=== PATIENT | female | born 1995 | race Caucasian/White ===

== ENCOUNTER 2017-01-26 20:05 | Emergency (ER) | payer BC, OTHER ==
--- NOTE | 2017-01-26 21:13 | ED ---
Female Urogenital HPI - General Chief complaint: Urogenital Stated complaint: 4 weeks /Bleeding Time Seen by Provider: 01/26/17 20:19 Source: patient, RN notes reviewed, old records reviewed Mode of arrival: ambulatory Limitations: no limitations - History of Present Illness Initial comments: 21-year-old female presents emergency Department chief complaint of intermittent vaginal bleeding for one day. She reports she has some lower pelvic cramping. She had a positive test one week ago. This is her second . Denies any fever or chills percent a few episodes of vomiting. - Related Data Previous Rx's Medication Instructions Recorded Flq-Qxjh-Ourtz Acid 1 cap PO DAILY #30 cap 01/26/17 [-U Capsule (formulary)] Allergies Allergy/AdvReac Type Severity Reaction Status Date / Time No Known Allergies Allergy Verified 01/26/17 21:30 Review of Systems ROS Statement: Those systems with pertinent positive or pertinent negative responses have been documented in the HPI. ROS Other: All systems not noted in ROS Statement are negative. Constitutional: Denies: chills Eyes: Denies: eye pain ENT: Denies: ear pain Respiratory: Denies: cough, dyspnea Cardiovascular: Denies: chest pain, palpitations Endocrine: Denies: fatigue Gastrointestinal: Reports: abdominal pain (cramping lower pelvic pain. ), vomiting Genitourinary: Denies: urgency Musculoskeletal: Denies: back pain Skin: Denies: rash, lesions Neurological: Denies: headache Past Medical History Past Medical History: Asthma History of Any Multi-Drug Resistant Organisms: None Reported Past Surgical History: No Surgical Hx Reported Past Psychological History: Anxiety Smoking Status: Former smoker Past Alcohol Use History: None Reported Past Drug Use History: None Reported General Exam - General Exam Comments Initial Comments: 21-year-old female. No acute distress. Limitations: no limitations General appearance: alert, in no apparent distress Head exam: Present: atraumatic, normocephalic, normal inspection Eye exam: Present: normal appearance, PERRL, EOMI. Absent: scleral icterus, conjunctival injection, periorbital swelling ENT exam: Present: normal exam, mucous membranes moist Neck exam: Present: normal inspection. Absent: tenderness, meningismus, lymphadenopathy Respiratory exam: Present: normal lung sounds bilaterally. Absent: respiratory distress, wheezes, rales, rhonchi, stridor Cardiovascular Exam: Present: regular rate, normal rhythm, normal heart sounds. Absent: systolic murmur, diastolic murmur, rubs, gallop, clicks GI/Abdominal exam: Present: soft, normal bowel sounds. Absent: distended, tenderness, guarding, rebound, rigid External exam: Present: normal external exam Speculum exam: Present: normal speculum exam. Absent: erythema, vaginal discharge, cervical discharge, vaginal bleeding By manual exam: Present: normal by manual exam. Absent: cervical motion tenderness, adnexal tenderness Extremities exam: Present: normal inspection, full ROM, normal capillary refill. Absent: tenderness, pedal edema, joint swelling, calf tenderness Back exam: Present: normal inspection Neurological exam: Present: alert, oriented X3, CN II-XII intact Psychiatric exam: Present: normal affect, normal mood Skin exam: Present: warm, dry, intact, normal color. Absent: rash Course Vital Signs 01/26/17 01/26/17 20:18 23:59 Temperature 98.9 F 99.1 F Pulse Rate 90 85 Respiratory 16 18 Rate Blood Pressure 135/88 115/68 O2 Sat by Pulse 97 98 Oximetry Medical Decision Making - Medical Decision Making Patient is a 20-year-old female presents emergency Department with CC of conern for early preganncy and vaginal bleeding. PAtietnt reports that she has had lower pelvic cramping for 1 day. Also a few episodes of vomiting. Pt blood type is o postive, hcg level noted to 8800. Patient US shows IUP at 7 mm, no gestational age at this tiime. Discussed patient needs to return for repeat hcg levels. Patient pelvic exam shows no major bleeding or cervical abnormalities. Return paramters discussed. Follow up with OB advised. - Lab Data Result diagrams: 01/26/17 21:49 Lab Results 01/26/17 01/26/17 01/26/17 Range/Units 21:49 21:49 21:49 WBC 7.7 (3.8-10.6) k/uL RBC 4.23 (3.80-5.40) m/uL Hgb 13.4 (11.4-16.0) gm/dL Hct 39.3 (34.0-46.0) % MCV 93.0 (80.0-100.0) fL MCH 31.6 (25.0-35.0) pg MCHC 34.0 (31.0-37.0) g/dL RDW 13.6 (11.5-15.5) % Plt Count 242 (150-450) k/uL Neutrophils % 71 % Lymphocytes % 21 % Monocytes % 6 % Eosinophils % 1 % Basophils % 0 % Neutrophils # 5.5 (1.3-7.7) k/uL Lymphocytes # 1.6 (1.0-4.8) k/uL Monocytes # 0.4 (0-1.0) k/uL Eosinophils # 0.1 (0-0.7) k/uL Basophils # 0.0 (0-0.2) k/uL HCG, Quant 8857.5 mIU/mL Urine Color Urine Appearance (Clear) Urine pH (5.0-8.0) Ur Specific [place] (1.001-1.035) Urine Protein (Negative) Urine Glucose (UA) (Negative) Urine Ketones (Negative) Urine Blood (Negative) Urine Nitrite (Negative) Urine Bilirubin (Negative) Urine Urobilinogen (<2.0) mg/dL Ur Leukocyte Esterase (Negative) Urine RBC (0-5) /hpf Urine WBC (0-5) /hpf Ur Squamous Epith Cells (0-4) /hpf Urine Mucus (None) /hpf Trichomonas Ag (Rapid) (Negative) Blood Type O Positive Blood Type Recheck No 01/26/17 01/26/17 Range/Units 21:49 23:00 WBC (3.8-10.6) k/uL RBC (3.80-5.40) m/uL Hgb (11.4-16.0) gm/dL Hct (34.0-46.0) % MCV (80.0-100.0) fL MCH (25.0-35.0) pg MCHC (31.0-37.0) g/dL RDW (11.5-15.5) % Plt Count (150-450) k/uL Neutrophils % % Lymphocytes % % Monocytes % % Eosinophils % % Basophils % % Neutrophils # (1.3-7.7) k/uL Lymphocytes # (1.0-4.8) k/uL Monocytes # (0-1.0) k/uL Eosinophils # (0-0.7) k/uL Basophils # (0-0.2) k/uL HCG, Quant mIU/mL Urine Color Yellow Urine Appearance Cloudy H (Clear) Urine pH 5.5 (5.0-8.0) Ur Specific [place] 1.024 (1.001-1.035) Urine Protein Trace H (Negative) Urine Glucose (UA) Negative (Negative) Urine Ketones Trace H (Negative) Urine Blood Negative (Negative) Urine Nitrite Negative (Negative) Urine Bilirubin Negative (Negative) Urine Urobilinogen <2.0 (<2.0) mg/dL Ur Leukocyte Esterase Negative (Negative) Urine RBC 2 (0-5) /hpf Urine WBC 3 (0-5) /hpf Ur Squamous Epith Cells 5 H (0-4) /hpf Urine Mucus Many H (None) /hpf Trichomonas Ag (Rapid) Negative (Negative) Blood Type Blood Type Recheck - Radiology Data Radiology results: report reviewed Intrauterine 7mm sac. No sign of ectopic at this time. Disposition Clinical Impression: Threatened miscarriage in early Disposition: HOME SELF-CARE Condition: Good Instructions: Threatened Miscarriage (ED) Additional Instructions: patient advised to repeat her blood work in 2 days. Patient should follow-up with primary care provider as well as [facility]. Take vitamins. Return to emergency department if any alarming signs or symptoms occur. Prescriptions: Snc-Nqlu-Emuqb Acid [-U Capsule (formulary)] 1 cap PO DAILY # 30 cap Referrals: Tenzin Martin MD [Primary Care Provider] - 1-2 days Amada Lopez DO [Doctor of Osteopathic Medicine] - 1-2 days Time of Disposition: 23:29
--- NOTE | 2017-01-26 21:28 | US ---
EXAMINATION TYPE: US OB <=14 wks transvag DATE OF EXAM: 01/26/2017 COMPARISON: NONE CLINICAL HISTORY: Pain. spotting EXAM PERFORMED: Transvaginal (TV) and Transabdominal (TA) EXAM MEASUREMENTS: GESTATIONAL AGE / DATING Physician Established: Not yet established Dates by LMP: ( 6 weeks/0 days) EDC: 09/21/2017 Dates by First Scan: No previous this is first scan Dates by Current Scan for: Unable to date by today's study ( MATERNAL ANATOMY Uterus: 6.3 x 3.0 x 3.8 cm Right Ovary: 4.5 x 2.8 x 4.0 cm Left Ovary: 2.3 x 1.5 x 1.8 cm Post CDS / Adnexa: wnl Presence of free fluid: no Presence of corpus luteal cyst: right ovarian cyst seen measuring 2.2 x 3.0 x 2. GESTATION / SURVEY CRL: not seen MSD: 0.67 Yolk Sac (normal less than 6mm): not seen IUP: No IUP seen at this time Date of LMP: 12/15/2016 Beta HcG (if available): Not available at this time Gestational sac seen at this time. No IUP visualized IMPRESSION: There is evidence of a 7 mm intrauterine gestational sac. Right ovarian cysts. Follow-up exam in 14 d ays is recommended to confirm a living fetus if clinically indicated.
[2017-01-26 21:58] LABS: Basophils % (A) 0 %; CH 31.9; CHCM 34.4; Eosinophils # (A) 0.1 k/uL (0-0.7); Eosinophils % (A) 1 %; HCT 39.3 % (34.0-46.0); HDW 2.37; HGB 13.4 gm/dL (11.4-16.0); Luc # (Auto) 0.07; Luc % (Auto) 1; Lymphocytes # (A) 1.6 k/uL (1.0-4.8); Lymphocytes % (A) 21 %; MCH 31.6 pg (25.0-35.0); Mean Platelet Volume 8.4; Monocytes # (A) 0.4 k/uL (0-1.0); Monocytes % (A) 6 %; Neutrophils # (A) 5.5 k/uL (1.3-7.7); Neutrophils % (A) 71 %; RBC 4.23 m/uL (3.80-5.40); RDW 13.6 % (11.5-15.5); WBC 7.7 k/uL (3.8-10.6); WBC (Perox) 8.08
[2017-01-26 22:05] LABS: Appearance,Urine Cloudy (Clear); Bilirubin,Urine Negative (Negative); Glucose,Urine (UA) Negative (Negative); Ketones,Urine Trace (Negative); Leukocyte Esterase,Urine Negative (Negative); Mucus,Urine Many /hpf; Nitrite,Urine Negative (Negative); PH, Urine 5.5 (5.0-8.0); Particle Count 7543; Protein,Urine Trace (Negative); RBC,Urine 2 /hpf (0-5); Specific Gravity,Urine 1.024 (1.001-1.035); Squamous Epithelial Cell,Urine 5 /hpf (0-4); UA Billing (MACRO vs. MICRO) MICRO; Urobilinogen,Urine <2.0 mg/dL (<2.0); WBC,Urine 3 /hpf (0-5)
[2017-01-27] VITALS: BP 115/68; PULSE 85; RESP 18; TEMP 99.1
[2017-02-02 14:55] LABS: Chlamydia/GC Source Vaginal
== END 2017-01-27 | disposition home or self-care (01) ==
LOC: EC 20:05
DX: O20.0 Threatened abortion (principal); Z87.891 Personal history of nicotine dependence; Z3A.01 Less than 8 weeks gestation of pregnancy
CPT/HCPCS: 36415; 76801; 76817; 81001; 84702; 85025; 86900; 86901; 87070; 87205; 87491; 87591; 87808; 99284

== ENCOUNTER → 2017-01-30 | Outpatient (CLI) | payer OTHER | END | disposition home or self-care (01) | LOC: LABWHC1 14:40 | PROVIDERS: ATTEND Physician Assistant Medical | DX: O20.0 Threatened abortion (principal); Z3A.00 Weeks of gestation of pregnancy not specified | CPT/HCPCS: 36415; 84702 ==

== ENCOUNTER 2017-02-07 15:35 | Emergency (ER) | payer OTHER ==
[2017-02-07] MEDS ORDERED: METOCLOPRAMIDE 5 MG/ML 2 ML VIAL IVP STA (16:08)
[2017-02-07] MEDS ORDERED: diphenhydrAMINE 50 MG/ML 1 ML VIAL IVP STA (16:08)
[2017-02-07] MEDS ORDERED: SODIUM CHLORIDE 0.9% 1,000 ML IV ONE (16:08)
--- NOTE | 2017-02-07 16:22 | ED ---
General Adult HPI - General Chief complaint: Abdominal Pain Stated complaint: vomiting, 6wks preg Time Seen by Provider: 02/07/17 15:59 Source: patient Mode of arrival: ambulatory Limitations: no limitations - History of Present Illness Initial comments: patient is a 21-year-old who presents with a chief complaint of nausea and vomiting. Patient is visiting on for 4 days. Patient states that she is never experienced this before. She says that she is about 6 weeks' by last menstrual period. She cannot identify any inciting incidences. She does not identify any aggravating or alleviating factors. Patient states she was able to keep down fluids yesterday. Patient states that she has been vomiting almost hourly. She does not have any previous medical history. - Related Data Previous Rx's Medication Instructions Recorded Pol-Wczj-Wdxrm Acid 1 cap PO DAILY #30 cap 01/26/17 [-U Capsule (formulary)] Metoclopramide HCl [Reglan] 10 mg PO BID #20 tablet 02/07/17 Nitrofurantoin Monohyd/M-Cryst 100 mg PO Q12HR #10 cap 02/07/17 [Macrobid] Allergies Allergy/AdvReac Type Severity Reaction Status Date / Time No Known Allergies Allergy Verified 02/07/17 16:17 Review of Systems ROS Statement: Those systems with pertinent positive or pertinent negative responses have been documented in the HPI. ROS Other: All systems not noted in ROS Statement are negative. Constitutional: Denies: fever Eyes: Denies: vision change ENT: Denies: ear pain, throat pain Respiratory: Denies: cough Cardiovascular: Denies: chest pain Gastrointestinal: Reports: nausea, vomiting. Denies: abdominal pain Genitourinary: Denies: discharge Musculoskeletal: Denies: back pain Skin: Denies: rash, lesions Neurological: Denies: headache Past Medical History Past Medical History: Asthma History of Any Multi-Drug Resistant Organisms: None Reported Past Surgical History: No Surgical Hx Reported Past Psychological History: Anxiety Smoking Status: Former smoker Past Alcohol Use History: None Reported Past Drug Use History: None Reported General Exam Limitations: no limitations General appearance: alert, in no apparent distress Head exam: Present: atraumatic, normocephalic Eye exam: Present: normal appearance ENT exam: Present: mucous membranes moist Respiratory exam: Present: normal lung sounds bilaterally Cardiovascular Exam: Present: regular rate, normal rhythm GI/Abdominal exam: Present: soft. Absent: distended, tenderness Rectal exam: Present: deferred Neurological exam: Present: alert, oriented X3 Psychiatric exam: Present: normal affect, normal mood Skin exam: Present: warm, dry, intact Course Vital Signs 02/07/17 15:53 Temperature 98.4 F Pulse Rate 80 Respiratory 18 Rate Blood Pressure 137/80 O2 Sat by Pulse 100 Oximetry Medical Decision Making - Medical Decision Making patient is a 21-year-old female, who presents 6 weeks with chief complaint of nausea and vomiting. She denies any fevers or chills, or sick contacts. We'll check basic labs, beta hCG, the patient will receive a liter of fluids. Bedside ultrasound shows an intrauterine gestational sac without identifiable heartbeat. This is likely secondary to early . Anatomy otherwise appeared normal. 5:22 PM Laboratory evaluation this patient is unremarkable except for mild evidence of urinary tract infection. Given that the patient is , she'll be treated with Macrobid for 5 days. She was given a prescription for Reglan. Patient states that her nausea is better, she is able to take by mouth intake. She was given exposes signs and symptoms that should prompt return visit to the emergency department. At this time, she is instructed to follow with primary care and [facility]. Patient is agreeable with the care plan, she is stable for discharge. - Lab Data Result diagrams: 02/07/17 16:30 02/07/17 16:30 Lab Results 02/07/17 02/07/17 02/07/17 Range/Units 16:30 16:30 16:30 WBC 8.7 (3.8-10.6) k/uL RBC 4.33 (3.80-5.40) m/uL Hgb 13.6 (11.4-16.0) gm/dL Hct 40.2 (34.0-46.0) % MCV 92.9 (80.0-100.0) fL MCH 31.4 (25.0-35.0) pg MCHC 33.8 (31.0-37.0) g/dL RDW 13.3 (11.5-15.5) % Plt Count 268 (150-450) k/uL Neutrophils % 74 % Lymphocytes % 17 % Monocytes % 7 % Eosinophils % 1 % Basophils % 0 % Neutrophils # 6.4 (1.3-7.7) k/uL Lymphocytes # 1.5 (1.0-4.8) k/uL Monocytes # 0.6 (0-1.0) k/uL Eosinophils # 0.1 (0-0.7) k/uL Basophils # 0.0 (0-0.2) k/uL Sodium 138 (137-145) mmol/L Potassium 3.5 (3.5-5.1) mmol/L Chloride 104 (98-107) mmol/L Carbon Dioxide 23 (22-30) mmol/L Anion Gap 11 mmol/L BUN 6 L (7-17) mg/dL Creatinine 0.58 (0.52-1.04) mg/dL Est GFR (MDRD) Af Amer >60 (>60 ml/min/1.73 sqM) Est GFR (MDRD) Non-Af >60 (>60 ml/min/1.73 sqM) Glucose 86 (74-99) mg/dL Calcium 9.9 (8.4-10.2) mg/dL Urine Color Yellow Urine Appearance Cloudy H (Clear) Urine pH 6.5 (5.0-8.0) Ur Specific [place] 1.025 (1.001-1.035) Urine Protein 1+ H (Negative) Urine Glucose (UA) Negative (Negative) Urine Ketones 2+ H (Negative) Urine Blood Negative (Negative) Urine Nitrite Negative (Negative) Urine Bilirubin Negative (Negative) Urine Urobilinogen 2.0 (<2.0) mg/dL Ur Leukocyte Esterase Large H (Negative) Urine RBC 2 (0-5) /hpf Urine WBC 8 H (0-5) /hpf Ur Squamous Epith Cells 12 H (0-4) /hpf Urine Bacteria Rare H (None) /hpf Urine Mucus Many H (None) /hpf Disposition Clinical Impression: Hyperemesis gravidarum, UTI (urinary tract infection) during , Ascites Disposition: HOME SELF-CARE Condition: Good Prescriptions: Metoclopramide HCl [Reglan] 10 mg PO BID #20 tablet Referrals: Tenzin Martin MD [Primary Care Provider] - 1-2 days
[2017-02-07 16:46] LABS: Appearance,Urine Cloudy (Clear); Bacteria,Urine Rare /hpf; Basophils % (A) 0 %; Bilirubin,Urine Negative (Negative); CH 32.3; CHCM 34.9; Eosinophils # (A) 0.1 k/uL (0-0.7); Eosinophils % (A) 1 %; Glucose,Urine (UA) Negative (Negative); HCT 40.2 % (34.0-46.0); HDW 2.37; HGB 13.6 gm/dL (11.4-16.0); Ketones,Urine 2+ (Negative); Leukocyte Esterase,Urine Large (Negative); Luc # (Auto) 0.08; Luc % (Auto) 1; Lymphocytes # (A) 1.5 k/uL (1.0-4.8); Lymphocytes % (A) 17 %; MCH 31.4 pg (25.0-35.0); MCHC 33.8 g/dL (31.0-37.0); MCV 92.9 fL (80.0-100.0); Mean Platelet Volume 8.1; Monocytes # (A) 0.6 k/uL (0-1.0); Monocytes % (A) 7 %; Mucus,Urine Many /hpf; Neutrophils # (A) 6.4 k/uL (1.3-7.7); Neutrophils % (A) 74 %; Nitrite,Urine Negative (Negative); PH, Urine 6.5 (5.0-8.0); Particle Count 18029; Protein,Urine 1+ (Negative); RBC 4.33 m/uL (3.80-5.40); RBC,Urine 2 /hpf (0-5); RDW 13.3 % (11.5-15.5); Specific Gravity,Urine 1.025 (1.001-1.035); Squamous Epithelial Cell,Urine 12 /hpf (0-4); UA Billing (MACRO vs. MICRO) MICRO; WBC 8.7 k/uL (3.8-10.6); WBC (Perox) 8.66; WBC,Urine 8 /hpf (0-5)
[2017-02-07 16:55] LABS: Anion Gap 11 mmol/L; Blood Urea Nitrogen 6 mg/dL (7-17); Calcium 9.9 mg/dL (8.4-10.2); Carbon Dioxide 23 mmol/L (22-30); Chloride 104 mmol/L (98-107); Glucose 86 mg/dL (74-99); Non-African American GFR(MDRD) >60 (>60 ml/min/1.73 sqM); Potassium 3.5 mmol/L (3.5-5.1); Sodium 138 mmol/L (137-145)
[2017-02-07 17:57] VITALS: BP 124/79; PULSE 81; RESP 16; TEMP 98.1
== END 2017-02-07 17:58 | disposition home or self-care (01) ==
LOC: EC 15:35
DX: O21.0 Mild hyperemesis gravidarum (principal); O23.41 Unspecified infection of urinary tract in pregnancy, first trimester; O99.89 Other specified diseases and conditions complicating pregnancy, childbirth and the puerperium; R18.8 Other ascites; Z87.891 Personal history of nicotine dependence; Z3A.01 Less than 8 weeks gestation of pregnancy
CPT/HCPCS: 36415; 80048; 85025; 81001; 84702; 99284; 96374; 96375; 96361; J1200; J2765

== ENCOUNTER 2017-04-12 15:18 | Emergency (ER) | payer OTHER ==
[2017-04-12] MEDS ORDERED: SODIUM CHLORIDE 0.9% 1,000 ML IV STA (16:44)
--- NOTE | 2017-04-12 17:02 | ED ---
General Adult HPI - General Chief complaint: Syncope Stated complaint: syncope/12 wks Time Seen by Provider: 04/12/17 16:39 Source: patient, RN notes reviewed Mode of arrival: ambulatory Limitations: no limitations - History of Present Illness Initial comments: 21 yo female presents to the ER with cc of syncope. Recent states she's had a cough cold last 2 days along with nausea and vomiting. She is 12 weeks . She not eat or drink anything yesterday when she went to the grocery store today she got lightheaded she's had a syncopal episode that was witnessed by the sister. This is not anything that she did fall to the ground. She states that she is eating and she is feeling better. She denies any chest pain or chest breath for this. She states she just was feeling very weak and lightheaded. Patient states that she is not currently having any other symptoms with this. Patient denies any history of this in the past. Patient states she has had nausea vomiting throughout the beginning of this . Patient to . She denies any vaginal drainage discharged she denies any abdominal pain. Patient denies any recent shortness of breath, chest pain, back pain, abdominal pain, numbness or tingling, dysuria or hematuria, constipation or diarrhea, headaches or visual changes, or any other current symptoms. - Related Data Home Medications Medication Instructions Recorded Confirmed Ondansetron [Zofran ODT] 4 mg PO Q12HR PRN 04/12/17 04/12/17 Allergies Allergy/AdvReac Type Severity Reaction Status Date / Time No Known Allergies Allergy Verified 04/12/17 16:57 Review of Systems ROS Statement: Those systems with pertinent positive or pertinent negative responses have been documented in the HPI. ROS Other: All systems not noted in ROS Statement are negative. Past Medical History Past Medical History: Asthma History of Any Multi-Drug Resistant Organisms: None Reported Past Surgical History: No Surgical Hx Reported Past Psychological History: Anxiety Smoking Status: Former smoker Past Alcohol Use History: None Reported Past Drug Use History: None Reported General Exam - General Exam Comments Initial Comments: General: The patient is awake and alert, in no distress, and does not appear acutely ill. Eye: Pupils are equal, round and reactive to light, extra-ocular movements are intact; there is normal conjunctiva bilaterally. No signs of icterus. Ears, nose, mouth and throat: There are moist mucous membranes. Neck: The neck is supple, there is no tenderness. Cardiovascular: There is a regular rate and rhythm. No murmur, rub or gallop is appreciated. Respiratory: Lungs are clear to auscultation, respirations are non-labored, breath sounds are equal. No wheezes, stridor, rales, or rhonchi. Gastrointestinal: Soft, non-distended, non-tender abdomen without masses or organomegaly noted. There is no rebound or guarding present. No CVA tenderness. Bowel sounds are unremarkable. Back: There is no tenderness to palpation in the midline. There is no obvious deformity. No rashes noted. Musculoskeletal: Normal ROM, no tenderness, There is no pedal edema. There is no calf tenderness or swelling. Sensation intact. Pulses equal bilaterally 2+. Neurological: CN II-XII intact, There are no obvious motor or sensory deficits. Coordination appears grossly intact. Speech is normal. Skin: Skin is warm and dry and no rashes or lesions are noted. Psychiatric: Cooperative, appropriate mood & affect, normal judgment. Limitations: no limitations Course Vital Signs 04/12/17 15:46 Temperature 99.0 F Pulse Rate 94 Respiratory 20 Rate Blood Pressure 113/71 O2 Sat by Pulse 98 Oximetry EKG Findings - EKG Comments: EKG Findings:: Normal sinus rhythm, incomplete right bundle branch block, ventricular rate 92, NE interval 132 Medical Decision Making - Medical Decision Making 21-year-old female presents emergency department with chief complaint of syncope. At this time patient's lab work is reviewed that does show some suspicion for dehydration. This time we informed the patient the importance of fluids (bleeding and drinking. We did discuss return parameters and follow-up and fci. We did give her a liter of fluids. We did discuss all of her questions. She stated that she understood and she is given this plan. This time she will be discharged. - Lab Data Result diagrams: 04/12/17 16:58 04/12/17 16:58 Lab Results 04/12/17 04/12/17 04/12/17 Range/Units 16:58 16:58 16:58 WBC 4.6 (3.8-10.6) k/uL RBC 4.05 (3.80-5.40) m/uL Hgb 13.1 (11.4-16.0) gm/dL Hct 37.2 (34.0-46.0) % MCV 91.8 (80.0-100.0) fL MCH 32.3 (25.0-35.0) pg MCHC 35.2 (31.0-37.0) g/dL RDW 13.1 (11.5-15.5) % Plt Count 195 (150-450) k/uL Neutrophils % 86 % Lymphocytes % 7 % Monocytes % 5 % Eosinophils % 1 % Basophils % 0 % Neutrophils # 4.0 (1.3-7.7) k/uL Lymphocytes # 0.3 L (1.0-4.8) k/uL Monocytes # 0.2 (0-1.0) k/uL Eosinophils # 0.0 (0-0.7) k/uL Basophils # 0.0 (0-0.2) k/uL Sodium 136 L (137-145) mmol/L Potassium 3.3 L (3.5-5.1) mmol/L Chloride 98 (98-107) mmol/L Carbon Dioxide 24 (22-30) mmol/L Anion Gap 14 mmol/L BUN 10 (7-17) mg/dL Creatinine 0.63 (0.52-1.04) mg/dL Est GFR (MDRD) Af Amer >60 (>60 ml/min/1.73 sqM) Est GFR (MDRD) Non-Af >60 (>60 ml/min/1.73 sqM) Glucose 111 H (74-99) mg/dL Calcium 9.4 (8.4-10.2) mg/dL Total Bilirubin 0.4 (0.2-1.3) mg/dL AST 38 H (14-36) U/L ALT 50 (9-52) U/L Alkaline Phosphatase 57 (38-126) U/L Total Protein 6.9 (6.3-8.2) g/dL Albumin 4.1 (3.5-5.0) g/dL Urine Color Yellow Urine Appearance Cloudy H (Clear) Urine pH 5.5 (5.0-8.0) Ur Specific [place] 1.028 (1.001-1.035) Urine Protein 1+ H (Negative) Urine Glucose (UA) Negative (Negative) Urine Ketones 2+ H (Negative) Urine Blood Negative (Negative) Urine Nitrite Negative (Negative) Urine Bilirubin Negative (Negative) Urine Urobilinogen 2.0 (<2.0) mg/dL Ur Leukocyte Esterase Moderate H (Negative) Urine RBC 3 (0-5) /hpf Urine WBC 17 H (0-5) /hpf Ur Squamous Epith Cells 19 H (0-4) /hpf Urine Bacteria Few H (None) /hpf Cellular Casts 7 (0) /lpf Hyaline Casts 7 H (0-2) /lpf Urine Mucus Many H (None) /hpf Disposition Clinical Impression: Dehydration, Syncope Disposition: HOME SELF-CARE Condition: Stable Instructions: Dehydration (ED) Additional Instructions: Please use medication as discussed. Please follow up with family doctor if symptoms have not improved over the next two days. Please return to the emergency room if your symptoms increase or worsen or for any other concerns. Referrals: Tenzin Martin MD [Primary Care Provider] - 1-2 days Time of Disposition: 17:32
[2017-04-12 17:13] LABS: Basophils % (A) 0 %; Eosinophils % (A) 1 %; HCT 37.2 % (34.0-46.0); HGB 13.1 gm/dL (11.4-16.0); Lymphocytes # (A) 0.3 k/uL (1.0-4.8); Lymphocytes % (A) 7 %; MCH 32.3 pg (25.0-35.0); MCHC 35.2 g/dL (31.0-37.0); MCV 91.8 fL (80.0-100.0); Mean Platelet Volume 8.1; Monocytes # (A) 0.2 k/uL (0-1.0); Monocytes % (A) 5 %; Neutrophils % (A) 86 %; Platelet Count 195 k/uL (150-450); RBC 4.05 m/uL (3.80-5.40); RDW 13.1 % (11.5-15.5); WBC 4.6 k/uL (3.8-10.6)
[2017-04-12 17:21] LABS: ALT 50 U/L (9-52); AST 38 U/L (14-36); Albumin 4.1 g/dL (3.5-5.0); Alkaline Phosphatase 57 U/L (38-126); Anion Gap 14 mmol/L; Appearance,Urine Cloudy (Clear); Bacteria,Urine Few /hpf; Bilirubin,Urine Negative (Negative); Blood Urea Nitrogen 10 mg/dL (7-17); Blood,Urine Negative (Negative); Calcium 9.4 mg/dL (8.4-10.2); Carbon Dioxide 24 mmol/L (22-30); Cellular Casts,Urine 7 /lpf (0); Chloride 98 mmol/L (98-107); Color,Urine Yellow; Glucose 111 mg/dL (74-99); Glucose,Urine (UA) Negative (Negative); Hyaline Casts,Urine 7 /lpf (0-2); Ketones,Urine 2+ (Negative); Leukocyte Esterase,Urine Moderate (Negative); Mucus,Urine Many /hpf; Nitrite,Urine Negative (Negative); PH, Urine 5.5 (5.0-8.0); Potassium 3.3 mmol/L (3.5-5.1); Protein,Urine 1+ (Negative); RBC,Urine 3 /hpf (0-5); Sodium 136 mmol/L (137-145); Specific Gravity,Urine 1.028 (1.001-1.035); Squamous Epithelial Cell,Urine 19 /hpf (0-4); Total Bilirubin 0.4 mg/dL (0.2-1.3); Total Protein 6.9 g/dL (6.3-8.2); WBC,Urine 17 /hpf (0-5)
[2017-04-12 17:57] VITALS: BP 100/60; PULSE 95; RESP 18; TEMP 97
== END 2017-04-12 17:57 | disposition home or self-care (01) ==
LOC: EC 15:18
DX: O99.281 Endocrine, nutritional and metabolic diseases complicating pregnancy, first trimester (principal); E86.0 Dehydration; O99.89 Other specified diseases and conditions complicating pregnancy, childbirth and the puerperium; R55 Syncope and collapse; Z3A.12 12 weeks gestation of pregnancy; Z87.891 Personal history of nicotine dependence
CPT/HCPCS: 36415; 80053; 81001; 85025; 87086; 93005; 96360; 99284

== ENCOUNTER → 2017-04-17 | Outpatient (CLI) | payer OTHER ==
--- NOTE | 2017-04-17 16:25 | US ---
EXAMINATION TYPE: US OB >= 14 wk fetus DATE OF EXAM: 04/17/2017 COMPARISON: None CLINICAL HISTORY: Z36 Confirm dates Confirm dates TECHNIQUE: Transabdominal (TA) GESTATIONAL AGE / DATING Physician Established: Not yet established Dates by LMP: unknown Dates by First Scan: Dates by Current Scan: (16 weeks/6 days) EDC: 09/26/17 SURVEY IUP: Single PLACENTA: Posterior PREVIA: Low Lying ADALI: 12.8 cm Normal CERVICAL LENGTH (transabdominal: norm > 3.0cm): 3.6 cm BIOMETRY PRESENTATION: Breech LIE: Transverse with head maternal RT BPD: 3.5 cm 16 weeks / 5 days HC: 13.1 cm 16 weeks / 5 days AC: 11.1 cm 17 weeks / 0 days FL: 2.2 cm 16 weeks / 5 days ESTIMATED WEIGHT IN GRAMS: 170 grams ESTIMATED WEIGHT IN LBS/OZ: 0 lbs. 6 oz. HC/AC: 1.18 Normal FL/AC: 20.09 Normal HEART RATE: 163 bpm RHYTHM: Normal Single viable IUP 16wks/6days with JAK of 09/26/17. Low lying placenta IMPRESSION: Single intrauterine gestation estimated at 16 weeks 6 days gestation based on the current ultrasound measurements. This would have a calculated EDC of 09/26/2017. 2. Cardiac activity measures 163 bpm. 3. Low-lying placenta
== END | disposition home or self-care (01) ==
LOC: RADUSWWP 15:04
PROVIDERS: ATTEND Obstetrics & Gynecology
DX: O44.42 Low lying placenta NOS or without hemorrhage, second trimester (principal); Z3A.16 16 weeks gestation of pregnancy
CPT/HCPCS: 76805

== ENCOUNTER → 2017-06-27 | Outpatient (CLI) | payer OTHER ==
[2017-06-27 13:35] LABS: HCT 32.9 % (34.0-46.0); HGB 11.3 gm/dL (11.4-16.0); MCHC 34.3 g/dL (31.0-37.0); MCV 93.5 fL (80.0-100.0); Mean Platelet Volume 8.4; Platelet Count 238 k/uL (150-450); RBC 3.52 m/uL (3.80-5.40); RDW 12.7 % (11.5-15.5); WBC 8.6 k/uL (3.8-10.6)
== END | disposition home or self-care (01) ==
LOC: LABWHC1 12:14
PROVIDERS: ATTEND Obstetrics & Gynecology
DX: Z34.82 Encounter for supervision of other normal pregnancy, second trimester (principal)
CPT/HCPCS: 36415; 82950; 85027

== ENCOUNTER 2017-08-26 14:24 | Outpatient (CLI) | payer OTHER ==
[2017-08-26 15:06] VITALS: BP 122/68; PULSE 96; RESP 14; TEMP 98.1
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
== END 2017-08-26 14:55 | disposition home or self-care (01) ==
LOC: FBPOP 14:24
PROVIDERS: ATTEND Obstetrics & Gynecology
DX: Z36.4 Encounter for antenatal screening for fetal growth retardation (principal)
CPT/HCPCS: 59025; G0463; 99213

== ENCOUNTER 2017-09-15 10:40 | Inpatient (IN) | payer OTHER ==
--- NOTE | 2017-09-15 12:22 | US ---
EXAMINATION TYPE: US OB limited DATE OF EXAM: 09/15/2017 COMPARISON: US 04/17/2017 CLINICAL HISTORY: ADALI. EXAM PERFORMED: Transabdominal (TA) GESTATIONAL AGE / DATING Physician Established: (38 weeks/3 days) EDC: 09/26/2017 Dates by Current Scan: No growth performed on today?s study per ordering physician SURVEY ADALI: 3.3 cm Oligohydramnios HEART RATE: 140 bpm RHYTHM: Normal IMPRESSION: Viable intrauterine , oligohydramnios, limited exam
[2017-09-15] MEDS ORDERED: OXYTOCIN 10 UNIT/ML 1 ML VIAL IM PRN (12:24)
[2017-09-15] MEDS ORDERED: CARBOPROST TROMETHAMINE 250 MCG/ML 1 ML AMP IM PRN (12:24)
[2017-09-15] MEDS ORDERED: LIDOCAINE 1% (PF) 10 MG/ML (30 ML SDV) SQ PRN (12:24)
[2017-09-15] MEDS ORDERED: METHYLERGONOVINE 0.2 MG/ML 1 ML AMP IM PRN (12:24)
[2017-09-15] MEDS ORDERED: TERBUTALINE 1 MG/ML VIAL SQ PRN (12:24)
[2017-09-15 12:30] VITALS: BMI 24.7
[2017-09-15] MEDS ORDERED: OXYTOCIN 20 UNITS/1000 ML NS 1,000 ML IV SCH ×2 (12:30→20:15)
[2017-09-15] MEDS ORDERED: AMPICILLIN 2,000 MG in SODIUM CHLORIDE 0.9% 100 ML IVPB STA (12:38)
--- NOTE | 2017-09-15 12:49 | P.HPOB ---
History of Present Illness H&P Date: 09/15/17 Chief Complaint: Leaking of fluid since 2 AM This patient is a 22-year-old 2 para 0 female estimated date of confinement 09/26/2017 estimated gestational age 38-3/7 weeks who presents to labor and delivery this afternoon with complaints of leaking since 2:00 this morning. Patient states that she began leaking at 2 in the morning and thought she did not need to come in until she was having contractions. care is per Dr. Connelly and appears to be complicated by a small for gestational age and late care. Most recent ultrasound showed the estimated weight to be 5 lbs. 8 oz. which is the 16th percentile. Review of Systems Gastrointestinal: Reports heartburn Genitourinary: Reports Menstruation: Reports amenorrhea Past Medical History Past Medical History: Asthma History of Any Multi-Drug Resistant Organisms: None Reported Past Surgical History: No Surgical Hx Reported Past Anesthesia/Blood Transfusion Reactions: No Reported Reaction Past Psychological History: Anxiety Smoking Status: Former smoker Past Alcohol Use History: None Reported Past Drug Use History: None Reported - Past Family History Father Family Medical History: Congestive Heart Failure (CHF), COPD, Diabetes Mellitus Medications and Allergies Allergies Allergy/AdvReac Type Severity Reaction Status Date / Time No Known Allergies Allergy Verified 08/26/17 14:30 Exam Vital Signs Temp Pulse Resp BP 09/15/17 12:30 96.6 F L 102 H 15 124/72 09/15/17 12:26 96.6 F L 102 H 15 124/72 Intake and Output 09/14/17 09/15/17 09/15/17 22:59 06:59 14:59 Other: Weight 61.235 kg - OBG Physical Exam Abdomen: bowel sounds normal, no diffuse tenderness, no bruit present, no guarding noted, no hepatomegaly, no splenomegaly, no mass Vulva: both: normal Vagina: Gross rupture for clear fluid noted. Cervix: Cervix is 3-4 and 80% -2 station vertex. Uterus: enlarged (Fundal height is 36 cm.) Results It appears the patient had a normal Glucola and normal ultrasounds otherwise. Group B strep was negative it is unclear if the patient did do her battery so we'll have to check her blood type. Assessment and Plan Assessment: This is a 22-year-old 2 para 0 female 38-3/7 weeks gestation with premature rupture membranes. Plan at this time is induction of labor, antibiotic prophylaxis, and anticipate vaginal delivery. If I'm unable to find patient's blood type will have to get this blood work drawn as well. (1) Premature rupture of membranes Current Visit: Yes Status: Acute Code(s): O42.90 - ANAY ROM, 7TH0 BETW RUPT & ONST LABR, UNSP WEEKS OF GEST SNOMED Code(s): 77578221 (2) Third trimester Current Visit: Yes Status: Acute Code(s): Z34.93 - ENCNTR FOR SUPRVSN OF NORMAL PREG, UNSP, THIRD TRIMESTER SNOMED Code(s): 77437912
[2017-09-15] MEDS: LACTATED RINGERS 1,000 ML IV SCH ×3 (12:52→15:35)
[2017-09-15 13:14] LABS: Basophils % (A) 0 %; Eosinophils % (A) 0 %; HCT 31.7 % (34.0-46.0); HGB 10.4 gm/dL (11.4-16.0); Lymphocytes # (A) 0.9 k/uL (1.0-4.8); Lymphocytes % (A) 8 %; MCH 29.2 pg (25.0-35.0); MCHC 32.8 g/dL (31.0-37.0); MCV 88.9 fL (80.0-100.0); Mean Platelet Volume 7.5; Monocytes # (A) 0.5 k/uL (0-1.0); Monocytes % (A) 5 %; Neutrophils % (A) 86 %; Platelet Count 291 k/uL (150-450); RBC 3.57 m/uL (3.80-5.40); RDW 13.4 % (11.5-15.5); WBC 11.6 k/uL (3.8-10.6)
[2017-09-15] MEDS ORDERED: fentaNYL (PF) 50 MCG/ML 5 ML AMP ONE (15:15)
[2017-09-15] MEDS ORDERED: BUPIVACAINE (PF) 0.25% 30 ML VIAL ONE (15:15)
[2017-09-15] MEDS ORDERED: SODIUM CHLORIDE 0.9% 100 ML BAG ONE (15:15)
[2017-09-15] MEDS: AMPICILLIN 1,000 MG in SODIUM CHLORIDE 0.9% 50 ML IVPB SCH ×2 (17:08→21:12)
[2017-09-15] MEDS ORDERED: diphenhydrAMINE 50 MG/ML 1 ML VIAL IVP PRN (20:02)
[2017-09-15] MEDS ORDERED: LANOLIN CREAM 5 GM TUBE TOPICAL PRN (20:02)
[2017-09-15] MEDS ORDERED: BISACODYL 10 MG SUPP RECTAL PRN (20:02)
[2017-09-15] MEDS ORDERED: BENZOCAINE/MENTHOL SPRAY 1 GM/SPRAY AEROSOL TOPICAL PRN (20:02)
[2017-09-15] MEDS ORDERED: ZOLPIDEM 5 MG TAB PO PRN (20:02)
[2017-09-15] MEDS ORDERED: ACETAMINOPHEN TAB 325 MG TAB PO PRN (20:02)
[2017-09-15] MEDS ORDERED: diphenhydrAMINE 25 MG CAP PO PRN (20:02)
[2017-09-15] MEDS ORDERED: WITCH HAZEL 1 EACH MED..PAD TOPICAL PRN (20:02)
[2017-09-15] MEDS ORDERED: SIMETHICONE 80 MG CHEWABLE PO PRN (20:02)
[2017-09-15] MEDS ORDERED: HYDROCORTISONE 2.5% RECTAL CREAM 30 GM TUBE RECTAL PRN (20:02)
--- NOTE | 2017-09-15 20:19 | P.PROBDLV ---
Vaginal Delivery Note - . Vaginal Delivery Note: Normal vaginal delivery viable male infant Apgars 8 and 8 at 1947 hrs. Please see dictated H&P for intimate details of this patient's admission. Brief summary this is a 22-year-old 1 para 0 female estimated gestational age 38-1/2 weeks who presented at noon today with complaints of leaking of fluid since 2 in the morning. Patient's cervix is 2 cm dilated on admission and for this reason and she is started on IV antibiotics due to prolonged rupture. Patient's labor is induced with Pitocin at this time. I did draw blood work on her because she did not have her battery drawn previously as well. Patient's labor progressed and she does receive an epidural for pain control. Patient gets to complete pushes the head to the perineum. Posterior perineum is supported we have controlled delivery of infant's head over the intact perineum. Mouth and nares are bulb suctioned at this time. There is no evidence of a nuchal cord. The anterior shoulder then spontaneously delivers and with maternal effort delivery of the posterior shoulder. This is a viable male infant Apgars are 8 and 8 delivery time is 1947 hrs. After delivery of the the umbilical cord is about to finish pulsating then clamped and cut. It is handed the nurses in attendance. Placenta spontaneously delivered intact. Estimated blood loss is 100 mL. There is a superficial left labial laceration that does not require suture. Of note patient did develop a intrapartum temperature just prior to delivery at 100 and then immediately after delivery of 104. Patient are to been on ampicillin however I did add gentamicin after delivery. will be evaluated by special care to rule out infection as well. All counts correct 3. There are no complications. Infant and mother stable delivery room.
[2017-09-15] MEDS ORDERED: GENTAMICIN 120 MG in SODIUM CHLORIDE 0.9% 100 ML IV ONE (20:20)
[2017-09-15] MEDS: IBUPROFEN 600 MG TAB PO PRN (20:41)
[2017-09-15] MEDS ORDERED: GENTAMICIN PER PHARMACY MISCELLANE SCH (20:45)
[2017-09-15] MEDS ORDERED: GENTAMICIN PER PHARMACY MISCELLANE ONE (20:45)
[2017-09-16] MEDS ORDERED: GENTAMICIN IV SCH ×2
[2017-09-16] MEDS ORDERED: SODIUM CHLORIDE 0.9% IV SCH ×2
[2017-09-16] MEDS: AMPICILLIN 1,000 MG in SODIUM CHLORIDE 0.9% 50 ML IVPB SCH ×5 (00:56→21:23)
[2017-09-16] MEDS: GENTAMICIN IN NACL ISO-OSM PMX 80 MG in SALINE 1 100ML.BAG IVPB SCH ×2 (06:10→15:11)
--- NOTE | 2017-09-16 07:06 | P.PNOBGVD ---
Subjective - Subjective Patient reports: Reports appetite normal, Reports voiding normally, Reports pain well controlled, Reports ambulating normally : doing well, in NICU Objective - Latest Vital Signs Latest vital signs: Vital Signs Temp Pulse Resp BP Pulse Ox 09/16/17 05:01 98.4 F 104 H 16 105/57 09/16/17 00:30 98.2 F 116 H 18 109/68 09/16/17 00:00 116 H 09/15/17 22:30 99.8 F H 131 H 18 123/64 09/15/17 21:53 101 F H 141 H 18 123/73 09/15/17 21:23 102.9 F H 130 H 18 122/61 09/15/17 20:53 101.9 F H 141 H 18 123/70 09/15/17 20:38 101.9 F H 131 H 18 123/69 09/15/17 20:08 101.9 F H 148 H 18 128/61 09/15/17 20:00 104 F H 148 H 18 128/61 09/15/17 19:53 104 F H 142 H 18 106/55 09/15/17 13:09 96.6 F L 102 H 16 125/77 99 09/15/17 12:30 96.6 F L 102 H 15 124/72 09/15/17 12:26 96.6 F L 102 H 15 124/72 Intake and Output 09/15/17 09/16/17 09/16/17 22:59 06:59 14:59 Intake Total 1150 1500 Output Total 500 Balance 650 1500 Intake: Intake, IV Titration 1150 300 Amount Ampicillin 1,000 mg In 50 200 Sodium Chloride 0.9% 50 ml @ 100 mls/hr IVPB Q4H [facility] Rx#:[id number] Gentamicin 120 mg In 100 Sodium Chloride 0.9% 100 ml @ 100.27 mls/hr IV ONCE ONE Rx#:[id number] Gentamicin in NaCl Iso- 100 Osm Pmx 80 mg In Saline 1 100ml.bag @ 100 mls/hr IVPB Q8H [facility] Rx#: [id number] Oxytocin 20 Units/1000 ml 1000 Ns 1,000 ml @ Per Protocol IV .Q0M [facility] Rx#: [id number] Oral 1200 Output: Urine 500 Other: # Voids 1 2 - Exam Lungs: bilateral: normal Chest: Normal S1, Normal S2 Extremities: Present: normal Abdomen: Present: normal appearance, soft Uterus: Present: normal, firm - Labs Labs: Abnormal Lab Results - Last 24 Hours (Table) 09/15/17 Range/Units 12:33 WBC 11.6 H (3.8-10.6) k/uL RBC 3.57 L (3.80-5.40) m/uL Hgb 10.4 L (11.4-16.0) gm/dL Hct 31.7 L (34.0-46.0) % Neutrophils # 10.0 H (1.3-7.7) k/uL Lymphocytes # 0.9 L (1.0-4.8) k/uL Assessment and Plan Assessment: day #1. Patient is resting without complaints. I added gentamicin immediately after delivery secondary to the patient's intrapartum fever and patient has defervesced quickly. She denies fevers or chills. Her abdomen is soft and her uterus is nontender. She's been afebrile for approximately 8 hours. Baby is in special care and is doing well, also on IV antibiotics. Plan today is to continue the ampicillin and gentamicin until later this afternoon and then most likely policy change clerks supervisor to an oral antibiotic. Check a CBC this morning. It appears that her chorioamnionitis has resolved with delivery and IV antibiotics. (1) Premature rupture of membranes Current Visit: Yes Status: Acute Code(s): O42.90 - ANAY ROM, 7TH0 BETW RUPT & ONST LABR, UNSP WEEKS OF GEST SNOMED Code(s): 09166374 (2) Third trimester Current Visit: Yes Status: Acute Code(s): Z34.93 - ENCNTR FOR SUPRVSN OF NORMAL PREG, UNSP, THIRD TRIMESTER SNOMED Code(s): 17777170 (3) Chorioamnionitis, delivered, current hospitalization Current Visit: Yes Status: Acute Code(s): O41.1290 - CHORIOAMNIONITIS, UNSP TRIMESTER, NOT APPLICABLE OR UNSP SNOMED Code(s): 83249060
[2017-09-16 07:52] LABS: Basophils % (A) 0 %; Eosinophils % (A) 0 %; HCT 29.1 % (34.0-46.0); HGB 9.5 gm/dL (11.4-16.0); Lymphocytes # (A) 1.2 k/uL (1.0-4.8); Lymphocytes % (A) 9 %; MCH 29.3 pg (25.0-35.0); MCHC 32.5 g/dL (31.0-37.0); MCV 90.3 fL (80.0-100.0); Mean Platelet Volume 7.4; Monocytes # (A) 1.1 k/uL (0-1.0); Monocytes % (A) 8 %; Neutrophils # (A) 11.1 k/uL (1.3-7.7); Neutrophils % (A) 82 %; Platelet Count 232 k/uL (150-450); RBC 3.22 m/uL (3.80-5.40); RDW 13.7 % (11.5-15.5); WBC 13.6 k/uL (3.8-10.6)
[2017-09-16] MEDS: SENNOSIDES-DOCUSATE SODIUM 1 EACH TAB PO SCH ×2 (08:33→10:32)
[2017-09-16] MEDS: AMOXIC-POT CLAV 875-125MG 1 EACH TAB PO SCH (21:35)
[2017-09-16 23:40] VITALS: PULSE 80; RESP 14
[2017-09-17] MEDS: IBUPROFEN 600 MG TAB PO PRN ×2 (00:13→08:25)
[2017-09-17] MEDS ORDERED: GENTAMICIN TROUGH DUE 1 EACH MISC MISCELLANE ONE (06:00)
--- NOTE | 2017-09-17 07:09 | P.PNOBGVD ---
Subjective - Subjective Patient reports: Reports appetite normal, Reports voiding normally, Reports pain well controlled, Reports ambulating normally [place]: doing well Objective - Latest Vital Signs Latest vital signs: Vital Signs Temp Pulse Resp BP BP Pulse Ox 09/16/17 23:38 98.3 F 80 14 122/73 98 09/16/17 16:00 98.4 F 95 16 103/62 09/16/17 12:00 98.0 F 107 H 16 111/68 09/16/17 08:00 98.1 F 94 16 102/60 Intake and Output 09/16/17 09/17/17 09/17/17 22:59 06:59 14:59 Intake Total 200 Balance 200 Intake: Intake, IV Titration 200 Amount Ampicillin 1,000 mg In 100 Sodium Chloride 0.9% 50 ml @ 100 mls/hr IVPB Q4H [facility] Rx#:[id number] Gentamicin in NaCl Iso- 100 Osm Pmx 80 mg In Saline 1 100ml.bag @ 100 mls/hr IVPB Q8H [facility] Rx#: [id number] Other: # Voids 2 - Exam Lungs: bilateral: normal Chest: Normal S1, Normal S2 Extremities: Present: normal Abdomen: Present: normal appearance, soft Uterus: Present: normal, firm - Labs Labs: Abnormal Lab Results - Last 24 Hours (Table) 09/16/17 Range/Units 07:20 WBC 13.6 H (3.8-10.6) k/uL RBC 3.22 L (3.80-5.40) m/uL Hgb 9.5 L (11.4-16.0) gm/dL Hct 29.1 L (34.0-46.0) % Neutrophils # 11.1 H (1.3-7.7) k/uL Monocytes # 1.1 H (0-1.0) k/uL Assessment and Plan Assessment: Post day #2. Patient is resting without new complaints. Vital signs are stable and she is afebrile. I changed her over to oral antibiotics yesterday. Uterus is firm nontender she's having normal lochia. CBC was appropriate. Plan at this time is to continue routine care. I feel she is stable for discharge home on oral antibiotics she'll follow up with Dr. Lainez on Monday to ensure that she still doing good. (1) Premature rupture of membranes Current Visit: Yes Status: Acute Code(s): O42.90 - ANAY ROM, 7TH0 BETW RUPT & ONST LABR, UNSP WEEKS OF GEST SNOMED Code(s): 38906800 (2) Third trimester Current Visit: Yes Status: Acute Code(s): Z34.93 - ENCNTR FOR SUPRVSN OF NORMAL PREG, UNSP, THIRD TRIMESTER SNOMED Code(s): 46323610 (3) Chorioamnionitis, delivered, current hospitalization Current Visit: Yes Status: Acute Code(s): O41.1290 - CHORIOAMNIONITIS, UNSP TRIMESTER, NOT APPLICABLE OR UNSP SNOMED Code(s): 80552018
--- NOTE | 2017-09-17 07:14 | P.DS ---
Providers Date of admission: 09/15/17 11:55 Expected date of discharge: 09/17/17 Attending physician: Ernesto Lainez Primary care physician: Ernesto Lainez - Discharge Diagnosis(es) (1) Premature rupture of membranes Current Visit: Yes Status: Acute (2) Third trimester Current Visit: Yes Status: Acute (3) Chorioamnionitis, delivered, current hospitalization Current Visit: Yes Status: Acute Hospital Course: Please see dictated H&P for intimate details of this patient's admission. Brief summary this is a 22-year-old 2 para 0 female 38-3/7 weeks gestation admitted to labor and delivery with premature rupture membranes. Patient was started on IV antibiotics on admission due to concern for prolonged rupture. Labor was induced with Pitocin and patient did progress quickly went on to have a vaginal delivery viable male infant. Please see dictated delivery note. Patient had a low-grade temperature just prior to delivery however immediately after delivery despite to temperature to 104. At that time I added gentamicin to her antibiotic regimen. CBC was normal on admission. Patient defervesced very quickly after delivery. After 24 hours of antibiotics she continued to be afebrile and was changed to oral antibiotics. That time she is felt to be stable for discharge home follow up with Dr. Lainez this week to recheck. Patient was instructed to call if she had any fever, chills, excessive vaginal bleeding, and/or abdominal pain. Procedures: Induction of labor and normal vaginal delivery. Patient Condition at Discharge: Good Plan - Discharge Summary Discharge Rx Participant: No New Discharge Prescriptions: New Amoxic-Pot Clav 875-125Mg [Augmentin 875-125] 1 each PO Q12HR 7 Days #14 tab Ibuprofen [Motrin] 600 mg PO Q6HR PRN #40 tab PRN Reason: Mild Pain Or Fever >= 100.5 Discharge Medication List Amoxic-Pot Clav 875-125Mg [Augmentin 875-125] 1 each PO Q12HR 7 Days #14 tab 04/06 [Rx] Ibuprofen [Motrin] 600 mg PO Q6HR PRN #40 tab 09/17/17 [Rx] Follow up Appointment(s)/Referral(s): Ernesto Lainez DO [Primary Care Provider] - 1 Week Patient Instructions/Handouts: Vaginal Delivery (DC) Activity/Diet/Wound Care/Special Instructions: No intercourse or anything per vagina for 6 weeks. Please follow up with Dr. Lainez this week as scheduled. Please call if any fever, chills, excessive vaginal bleeding, and/or abdominal pain. Discharge Disposition: HOME SELF-CARE
[2017-09-17 07:30] LABS: Anion Gap 7 mmol/L; Blood Urea Nitrogen 7 mg/dL (7-17); Calcium 8.2 mg/dL (8.4-10.2); Carbon Dioxide 23 mmol/L (22-30); Chloride 109 mmol/L (98-107); Glucose 72 mg/dL (74-99); Sodium 139 mmol/L (137-145)
[2017-09-17] MEDS: AMOXIC-POT CLAV 875-125MG 1 EACH TAB PO SCH (08:26)
[2017-09-17 08:29] VITALS: BP 110/69; TEMP 97.8
[2017-09-17] MEDS ORDERED: GENTAMICIN PEAK DUE 1 EACH MISC MISCELLANE ONE (08:30)
== END 2017-09-17 10:51 | disposition home or self-care (01) | DRG 775 ==
LOC: FBPOP 10:40 → 4FBP 11:55
PROVIDERS: ADMIT Obstetrics & Gynecology; ATTEND Obstetrics & Gynecology
PROC: 10E0XZZ Delivery of Products of Conception, External Approach (ICD-10-PCS; principal; 2017-09-15)
PROC: 00HU33Z Insertion of Infusion Device into Spinal Canal, Percutaneous Approach (ICD-10-PCS; principal; 2017-09-15)
PROC: 3E0R3NZ Introduction of Analgesics, Hypnotics, Sedatives into Spinal Canal, Percutaneous Approach (ICD-10-PCS; principal; 2017-09-15)
DX: O42.02 Full-term premature rupture of membranes, onset of labor within 24 hours of rupture (principal); O41.1230 Chorioamnionitis, third trimester, not applicable or unspecified; O70.0 First degree perineal laceration during delivery; J45.909 Unspecified asthma, uncomplicated; O99.52 Diseases of the respiratory system complicating childbirth; Z3A.38 38 weeks gestation of pregnancy; Z37.0 Single live birth; Z87.891 Personal history of nicotine dependence; Z82.49 Family history of ischemic heart disease and other diseases of the circulatory system; Z83.3 Family history of diabetes mellitus; Z82.5 Family history of asthma and other chronic lower respiratory diseases
CPT/HCPCS: 59025; 76815; 80048; 80170; 85025; 86762; 86780; 86850; 86900; 86901; 87340; 88307; 99213

== ENCOUNTER 2018-05-30 21:51 | Inpatient (IN) | payer OTHER ==
[2018-05-30] MEDS ORDERED: SODIUM CHLORIDE 0.9% 1,000 ML IV SCH (22:15)
[2018-05-30] MEDS ORDERED: ONDANSETRON 4 MG/2 ML VIAL IVP STA (22:48)
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
[2018-05-30 23:14] LABS: Basophils % (A) 0 %; Eosinophils % (A) 0 %; HCT 36.4 % (34.0-46.0); HGB 12.2 gm/dL (11.4-16.0); Lymphocytes # (A) 0.8 k/uL (1.0-4.8); Lymphocytes % (A) 9 %; MCH 29.6 pg (25.0-35.0); MCHC 33.5 g/dL (31.0-37.0); MCV 88.2 fL (80.0-100.0); Mean Platelet Volume 6.8; Monocytes # (A) 0.3 k/uL (0-1.0); Monocytes % (A) 4 %; Neutrophils # (A) 7.3 k/uL (1.3-7.7); Neutrophils % (A) 86 %; Platelet Count 224 k/uL (150-450); RBC 4.13 m/uL (3.80-5.40); RDW 13.1 % (11.5-15.5); WBC 8.4 k/uL (3.8-10.6)
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
[2018-05-30 23:24] LABS: HCG,Qualitative Serum Not Detected
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
[2018-05-30 23:26] LABS: ALT 67 U/L (9-52); AST 79 U/L (14-36); Albumin 3.5 g/dL (3.5-5.0); Alkaline Phosphatase 97 U/L (38-126); Anion Gap 11 mmol/L; Blood Urea Nitrogen 10 mg/dL (7-17); Calcium 8.5 mg/dL (8.4-10.2); Carbon Dioxide 23 mmol/L (22-30); Chloride 104 mmol/L (98-107); Glucose 123 mg/dL (74-99); Potassium 3.5 mmol/L (3.5-5.1); Sodium 138 mmol/L (137-145); Total Bilirubin 0.5 mg/dL (0.2-1.3); Total Protein 6.2 g/dL (6.3-8.2)
[2018-05-30] MEDS ORDERED: LIDOCAINE 1% INJ 10MG/ML (20 ML MDV) SQ STA (23:46)
[2018-05-30] MEDS ORDERED: DEXTROSE 5%-0.45% NACL 1,000 ML IV ONE (23:51)
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
--- NOTE | 2018-05-31 00:08 | XR ---
EXAM: XR Right Foot Complete, 3 or More Views CLINICAL HISTORY: Pain TECHNIQUE: Frontal, lateral and oblique views of the right foot. COMPARISON: No relevant prior studies available. FINDINGS: Bones/joints: No acute fracture or malalignment. Soft tissues: Unremarkable. No radiopaque foreign body. IMPRESSION: No acute osseous abnormality.
[2018-05-31 00:32] LABS: HCT 40.1 % (34.0-46.0); HGB 12.5 gm/dL (11.4-16.0); MCH 28.1 pg (25.0-35.0); MCHC 31.3 g/dL (31.0-37.0); MCV 89.9 fL (80.0-100.0); Mean Platelet Volume 7.6; Platelet Count 203 k/uL (150-450); RBC 4.46 m/uL (3.80-5.40); RDW 13.4 % (11.5-15.5); WBC 8.7 k/uL (3.8-10.6)
[2018-05-31] MEDS ORDERED: NALOXONE 0.4 MG/ML 1 ML VIAL IV PRN (00:35)
[2018-05-31] MEDS ORDERED: ONDANSETRON 4 MG/2 ML VIAL IVP PRN (00:35)
[2018-05-31] MEDS ORDERED: SODIUM CHLORIDE 0.9% 1,000 ML IV SCH (00:45)
[2018-05-31 01:19] LABS: Glucose,Whole Blood 107 mg/dL (75-99)
[2018-05-31 01:48] LABS: Appearance,Urine Clear (Clear); Bilirubin,Urine Negative (Negative); Blood,Urine Trace (Negative); Color,Urine Light Yellow; Glucose,Urine (UA) Negative (Negative); Ketones,Urine 1+ (Negative); Leukocyte Esterase,Urine Trace (Negative); Mucus,Urine Rare /hpf; Nitrite,Urine Negative (Negative); PH, Urine 5.5 (5.0-8.0); Protein,Urine Negative (Negative); RBC,Urine 4 /hpf (0-5); Specific Gravity,Urine 1.023 (1.001-1.035); Squamous Epithelial Cell,Urine 2 /hpf (0-4); Urobilinogen,Urine <2.0 mg/dL (<2.0); WBC,Urine 5 /hpf (0-5)
[2018-05-31 01:51] VITALS: BMI 23.9
[2018-05-31 05:01] LABS: HCT 34.8 % (34.0-46.0); HGB 11.9 gm/dL (11.4-16.0); MCH 30.5 pg (25.0-35.0); MCHC 34.1 g/dL (31.0-37.0); MCV 89.3 fL (80.0-100.0); Platelet Count 210 k/uL (150-450); RDW 13.2 % (11.5-15.5); WBC 5.1 k/uL (3.8-10.6)
[2018-05-31 05:12] LABS: ALT 62 U/L (9-52); AST 60 U/L (14-36); Albumin 3.3 g/dL (3.5-5.0); Alkaline Phosphatase 91 U/L (38-126); Anion Gap 8 mmol/L; Blood Urea Nitrogen 6 mg/dL (7-17); Calcium 8.5 mg/dL (8.4-10.2); Carbon Dioxide 21 mmol/L (22-30); Chloride 107 mmol/L (98-107); Glucose 132 mg/dL (74-99); Magnesium 1.7 mg/dL (1.6-2.3); Phosphorus 2.9 mg/dL (2.5-4.5); Potassium 3.3 mmol/L (3.5-5.1); Sodium 136 mmol/L (137-145); Total Bilirubin 0.5 mg/dL (0.2-1.3)
[2018-05-31] MEDS ORDERED: Phosphorus Replacement Protoco 1 EACH MISC MISCELLANE PRN (07:31)
[2018-05-31] MEDS ORDERED: Magnesium Replacement Protocol 1 EACH MISC MISCELLANE PRN (07:31)
[2018-05-31] MEDS ORDERED: Potassium Replacement Protocol 1 EACH MISC MISCELLANE PRN (07:31)
[2018-05-31] MEDS ORDERED: POTASSIUM PHOSPHATE 10 MMOL in SODIUM CHLORIDE 0.9% 250 ML IV SCH (07:45)
--- NOTE | 2018-05-31 08:13 | XR ---
EXAMINATION TYPE: XR chest 1V DATE OF EXAM: 05/31/2018 COMPARISON: Prior chest x-ray 05/30/2018 HISTORY: Pneumothorax TECHNIQUE: Single frontal view of the chest is obtained. FINDINGS: There is no focal air space opacity, pleural effusion, or pneumothorax seen. The cardiac silhouette size is within normal limits. The osseous structures are intact. IMPRESSION: No acute process.
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
[2018-05-31] MEDS: PANTOPRAZOLE 40 MG/10 ML VIAL IV SCH (09:01)
[2018-05-31] MEDS: MAGNESIUM SULFATE-D5W PMX 1 GM in DEXTROSE/WATER 1 100ML.BAG IVPB SCH ×2 (09:02→10:24)
[2018-05-31] MEDS: POTASSIUM CHLORIDE ER 20 MEQ TAB.ER PO SCH ×2 (09:02→10:24)
[2018-05-31] MEDS: HYDROmorphone 0.5 MG/0.5 ML SYRINGE IVP PRN (09:22)
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
[2018-05-31 12:29] LABS: HCT 34.1 % (34.0-46.0); HGB 11.6 gm/dL (11.4-16.0); MCH 30.2 pg (25.0-35.0); MCHC 33.9 g/dL (31.0-37.0); MCV 89.1 fL (80.0-100.0); Mean Platelet Volume 6.8; Platelet Count 204 k/uL (150-450); RBC 3.83 m/uL (3.80-5.40); RDW 13.2 % (11.5-15.5); WBC 5.6 k/uL (3.8-10.6)
[2018-05-31] MEDS ORDERED: POTASSIUM CHLORIDE ER 20 MEQ TAB.ER PO SCH (15:00)
[2018-05-31 18:15] LABS: HCT 35.3 % (34.0-46.0); HGB 12.1 gm/dL (11.4-16.0); MCH 29.6 pg (25.0-35.0); MCHC 34.2 g/dL (31.0-37.0); MCV 86.7 fL (80.0-100.0); Mean Platelet Volume 7.4; Platelet Count 175 k/uL (150-450); RBC 4.07 m/uL (3.80-5.40); RDW 13.4 % (11.5-15.5); WBC 5.2 k/uL (3.8-10.6)
[2018-06-01] MEDS: HYDROmorphone 0.5 MG/0.5 ML SYRINGE IVP PRN (02:15)
[2018-06-01 04:38] LABS: Basophils % (A) 0 %; Eosinophils % (A) 1 %; HGB 12.2 gm/dL (11.4-16.0); Lymphocytes # (A) 0.8 k/uL (1.0-4.8); Lymphocytes % (A) 11 %; MCH 29.7 pg (25.0-35.0); Mean Platelet Volume 6.9; Monocytes # (A) 0.4 k/uL (0-1.0); Monocytes % (A) 5 %; Neutrophils # (A) 6.6 k/uL (1.3-7.7); Neutrophils % (A) 84 %; Platelet Count 186 k/uL (150-450); RBC 4.11 m/uL (3.80-5.40); RDW 13.2 % (11.5-15.5); WBC 7.9 k/uL (3.8-10.6)
[2018-06-01 04:43] LABS: Glucose,Whole Blood 73 mg/dL (75-99)
[2018-06-01 04:48] LABS: ALT 54 U/L (9-52); AST 38 U/L (14-36); Albumin 3.5 g/dL (3.5-5.0); Alkaline Phosphatase 93 U/L (38-126); Anion Gap 9 mmol/L; Blood Urea Nitrogen 10 mg/dL (7-17); Calcium 8.9 mg/dL (8.4-10.2); Carbon Dioxide 21 mmol/L (22-30); Chloride 109 mmol/L (98-107); Glucose 65 mg/dL (74-99); Potassium 4.2 mmol/L (3.5-5.1); Sodium 139 mmol/L (137-145); Total Bilirubin 0.9 mg/dL (0.2-1.3); Total Protein 6.3 g/dL (6.3-8.2)
--- NOTE | 2018-06-01 08:14 | XR ---
EXAMINATION TYPE: XR shoulder complete LT DATE OF EXAM: 06/01/2018 COMPARISON: NONE HISTORY: Pain TECHNIQUE: Three views are submitted. FINDINGS: The osseous structures are intact. There is no acute fracture or dislocation. AC joint spaces mainta ined. There may be slight elevation of the clavicle relative the acromion. IMPRESSION: 1. There may be slight elevation of the clavicle relative the acromion which can be seen with an AC j oint separation and could be correlated with MRI or dedicated AC joint series.
--- NOTE | 2018-06-01 08:17 | XR ---
EXAMINATION TYPE: XR chest 1V portable DATE OF EXAM: 06/01/2018 COMPARISON: 05/30/2018 HISTORY: Pain TECHNIQUE: Single frontal view of the chest is obtained. FINDINGS: Previously noted tiny apical pneumothorax is not well seen chest x-ray. No consolidation o r pleural effusion. No pneumothorax. IMPRESSION: Previously noted tiny pneumothorax is not well seen on standard x-ray
[2018-06-01] MEDS: PANTOPRAZOLE 40 MG/10 ML VIAL IV SCH (09:02)
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
[2018-06-02 06:07] LABS: Basophils % (A) 0 %; Eosinophils # (A) 0.1 k/uL (0-0.7); Eosinophils % (A) 2 %; HCT 36.9 % (34.0-46.0); HGB 12.2 gm/dL (11.4-16.0); Lymphocytes # (A) 1.3 k/uL (1.0-4.8); Lymphocytes % (A) 24 %; MCH 29.4 pg (25.0-35.0); MCV 89.1 fL (80.0-100.0); Monocytes # (A) 0.4 k/uL (0-1.0); Monocytes % (A) 7 %; Neutrophils # (A) 3.6 k/uL (1.3-7.7); Neutrophils % (A) 65 %; Platelet Count 169 k/uL (150-450); RBC 4.14 m/uL (3.80-5.40); RDW 13.6 % (11.5-15.5); WBC 5.5 k/uL (3.8-10.6)
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
[2018-06-02] MEDS: PANTOPRAZOLE 40 MG/10 ML VIAL IV SCH (09:37)
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
[2018-06-02 15:04] VITALS: RESP 16
[2018-06-03] MEDS: PANTOPRAZOLE 40 MG TABLET PO SCH (08:54)
[2018-06-03] MEDS: HYDROcodone/APAP 5-325MG 1 EACH TAB PO PRN (08:58)
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
[2018-06-03 09:26] LABS: Basophils % (A) 0 %; Eosinophils # (A) 0.1 k/uL (0-0.7); Eosinophils % (A) 2 %; HGB 12.1 gm/dL (11.4-16.0); Lymphocytes # (A) 1.1 k/uL (1.0-4.8); Lymphocytes % (A) 22 %; MCH 28.9 pg (25.0-35.0); MCHC 32.6 g/dL (31.0-37.0); MCV 88.5 fL (80.0-100.0); Mean Platelet Volume 8.3; Monocytes # (A) 0.4 k/uL (0-1.0); Monocytes % (A) 7 %; Neutrophils # (A) 3.4 k/uL (1.3-7.7); Neutrophils % (A) 68 %; Platelet Count 181 k/uL (150-450); RBC 4.18 m/uL (3.80-5.40); RDW 13.6 % (11.5-15.5); WBC 5.1 k/uL (3.8-10.6)
--- NOTE | 2018-06-03 11:47 | XR ---
Right ankle HISTORY: Pain 3 views of the right ankle Bone mineralization, joint spaces and alignment are maintained. No significant soft tissue swelling. No fracture or dislocation. IMPRESSION: Unremarkable right ankle. Consider MRI as indicated.
--- NOTE | 2018-06-03 13:11 | P.PN ---
Progress Note - Text Progress Note Date: 06/03/18 The patient did well. She has minimal complaints of abdominal pain. Her hemoglobin has been stable in the 12 range. On exam her vital signs are stable. Her abdomen soft. Patiently most likely discharge home tomorrow after being evaluated by Dr. Rdz.
[2018-06-04] MEDS: HYDROcodone/APAP 5-325MG 1 EACH TAB PO PRN (05:07)
[2018-06-04 08:01] VITALS: BP 113/76; PULSE 87; TEMP 98
[2018-06-04] MEDS: PANTOPRAZOLE 40 MG TABLET PO SCH (09:02)
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
== END 2018-06-04 11:29 | disposition home or self-care (01) | DRG 963 ==
LOC: EC 21:51 → 2SICU 05-31 00:35 → 4SSUR 06-02 12:14
PROVIDERS: ADMIT Surgery; ATTEND Surgery
DX: S36.031A Moderate laceration of spleen, initial encounter (principal); K66.1 Hemoperitoneum; S27.0XXA Traumatic pneumothorax, initial encounter; S36.112A Contusion of liver, initial encounter; F41.9 Anxiety disorder, unspecified; J45.909 Unspecified asthma, uncomplicated; M41.9 Scoliosis, unspecified; S43.102A Unspecified dislocation of left acromioclavicular joint, initial encounter; S93.601A Unspecified sprain of right foot, initial encounter; V89.2XXA Person injured in unspecified motor-vehicle accident, traffic, initial encounter; Y92.410 Unspecified street and highway as the place of occurrence of the external cause; Z72.0 Tobacco use; Z82.49 Family history of ischemic heart disease and other diseases of the circulatory system; Z82.5 Family history of asthma and other chronic lower respiratory diseases; Z83.3 Family history of diabetes mellitus
CPT/HCPCS: 36415; 70450; 71045; 72125; 74177; 80053; 81001; 83735; 84100; 84132; 84703; 85025; 85027; 86850; 86900; 86901; 96361; 96372; 96374; 99285

== ENCOUNTER → 2018-07-19 | Outpatient (CLI) | payer OTHER ==
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
== END ==
LOC: RADCTMAIN 08:59
PROVIDERS: ATTEND Surgery
DX: S36.039D Unspecified laceration of spleen, subsequent encounter (principal)
CPT/HCPCS: 74160; Q9967

== ENCOUNTER → 2021-01-13 | Outpatient (CLI) | payer OTHER ==
--- NOTE | 2021-01-14 07:33 | US ---
EXAMINATION TYPE: US pelvic complete DATE OF EXAM: 01/13/2021 COMPARISON: NONE CLINICAL HISTORY: R10.2 pelvic pain. TECHNIQUE: . Transabdominal sonographic images of the pelvis were acquired. Transvaginal sonographi c images were medically necessary to better assess the following anatomy: Date of LMP: 01-02-21 EXAM MEASUREMENTS: Uterus: 6.3 x 2.1 x 3.6 cm Endometrial Stripe: 0.2 cm Right Ovary: 1.9 x 2.0 x 1.7 cm Left Ovary: 2.3 x 1.8 x 1.5 cm 1. Uterus: Anteverted wnl 2. Endometrium: wnl 3. Right Ovary: wnl 4. Left Ovary: wnl 5. Bilateral Adnexa: wnl 6. Posterior cul-de-sac: wnl IMPRESSION: No distinct abnormality appreciated.
== END | disposition home or self-care (01) ==
LOC: RADUSWWP 16:17
PROVIDERS: ATTEND Obstetrics & Gynecology
DX: R10.2 Pelvic and perineal pain (principal)
CPT/HCPCS: 76856

== ENCOUNTER 2021-12-22 15:10 | Emergency (ER) | payer OTHER ==
[2021-12-22 16:32] LABS: Appearance,Urine Cloudy (Clear); Bacteria,Urine Few /hpf; Bilirubin,Urine Negative (Negative); Blood,Urine Trace (Negative); Color,Urine Yellow; Glucose,Urine (UA) Negative (Negative); Ketones,Urine 1+ (Negative); Leukocyte Esterase,Urine Large (Negative); Mucus,Urine Many /hpf; Nitrite,Urine Negative (Negative); PH, Urine 5.5 (5.0-8.0); Protein,Urine Trace (Negative); RBC,Urine 56 /hpf (0-5); Specific Gravity,Urine 1.021 (1.001-1.035); Squamous Epithelial Cell,Urine 24 /hpf (0-4); Urobilinogen,Urine <2.0 mg/dL (<2.0); WBC,Urine >182 /hpf (0-5)
--- NOTE | 2021-12-22 17:17 | ED ---
Female Urogenital HPI - General Chief complaint: Vaginal Bleeding Stated complaint: preg spotting Time Seen by Provider: 12/22/21 16:25 Source: patient, RN notes reviewed Mode of arrival: ambulatory Limitations: no limitations - History of Present Illness Initial comments: This is a 26-year-old female who presents to the emergency department for pelvic pain and vaginal bleeding in . 3 days ago, she had 3 positive tests. States that she took a test due to breast tenderness, which is how she knew she was in the past. She has since had light vaginal spotting with a foul odor. She has associated lower abdominal cramping, but the pain is not severe enough to where she has had to take Tylenol. Her periods are very erratic and she sometimes goes 3 months without a period. She has not had what she would consider a typical menstrual cycle since September of this year. Denies any nausea or vomiting. Her last was 4 years ago. Denies any fevers, chills, sore throat, cough, dyspnea, chest pain, palpitations, nausea, vomiting, diarrhea, back pain, or headaches. MD Complaint: vaginal bleeding, pelvic pain Onset/Timin -: days(s) Patient : Yes - Related Data Home Medications Medication Instructions Recorded Confirmed Lillow-28 1 tab PO DAILY 05/30/18 05/30/18 Previous Rx's Medication Instructions Recorded Docusate [Colace] 100 mg PO BID #30 capsule 06/04/18 HYDROcodone/APAP 5-325MG [[place] 1 tab PO Q4HR PRN 3 Days #18 tab 06/04/18 5-325] Cephalexin [Keflex] 500 mg PO Q8HR 5 Days #15 cap 12/22/21 Allergies Allergy/AdvReac Type Severity Reaction Status Date / Time No Known Allergies Allergy Verified 12/22/21 16:12 Review of Systems ROS Statement: Those systems with pertinent positive or pertinent negative responses have been documented in the HPI. ROS Other: All systems not noted in ROS Statement are negative. Past Medical History Past Medical History: Asthma Additional Past Medical History / Comment(s): scoliosis History of Any Multi-Drug Resistant Organisms: None Reported Past Surgical History: No Surgical Hx Reported Past Anesthesia/Blood Transfusion Reactions: No Reported Reaction Past Psychological History: Anxiety Smoking Status: Never smoker Past Alcohol Use History: Occasional Past Drug Use History: Marijuana - Past Family History Father Family Medical History: Congestive Heart Failure (CHF), COPD, Diabetes Mellitus General Exam Limitations: no limitations General appearance: alert, in no apparent distress Head exam: Present: atraumatic, normocephalic, normal inspection Respiratory exam: Present: normal lung sounds bilaterally. Absent: respiratory distress, wheezes, rales, rhonchi, stridor Cardiovascular Exam: Present: regular rate, normal rhythm, normal heart sounds. Absent: systolic murmur, diastolic murmur, rubs, gallop, clicks GI/Abdominal exam: Present: normal bowel sounds Neurological exam: Present: alert, oriented X3, CN II-XII intact Psychiatric exam: Present: normal affect, normal mood Skin exam: Present: warm, dry, intact, normal color. Absent: rash Course Vital Signs 12/22/21 16:09 Temperature 98.2 F Pulse Rate 76 Respiratory 16 Rate Blood Pressure 133/86 O2 Sat by Pulse 100 Oximetry Medical Decision Making - Medical Decision Making This is a 26-year-old female who presents to the emergency department for pelvic pain and vaginal bleeding in . Lab work was nonactionable. Urinalysis consistent with contamination, however given that she is and there is a small amount of bacteria present, she will be treated for bacteriuria. Prescription for Keflex provided to be taken for 5 days. Obstetrics ultrasound obtained, revealing a small anechoic intrauterine cystic structure most consistent with an early gestational sac, however ectopic and abnormal intrauterine cannot be ruled out. Findings discussed with the patient, who expresses understanding. She is instructed to begin taking a vitamin and to only take Tylenol for pain, avoiding any anti- inflammatories such as ibuprofen. Also suggested over the counter vitamin B6 wi th unisom for any nausea and vomiting. She is also advised to become established with an WOOD CABINETMAKER for further management. Return precautions reviewed in depth, the patient is instructed to return to the emergency department with any new, worsening, or concerning symptoms. Patient verbalized understanding. This case was discussed in detail with the attending ED physician. Presentation, findings, and treatment plan discussed in detail as well. - Lab Data Result diagrams: 12/22/21 17:13 12/22/21 17:13 Lab Results 12/22/21 12/22/21 12/22/21 Range/Units 16:12 16:12 17:13 WBC 8.1 (3.8-10.6) k/uL RBC 4.60 (3.80-5.40) m/uL Hgb 14.3 (11.4-16.0) gm/dL Hct 41.3 (34.0-46.0) % MCV 89.9 (80.0-100.0) fL MCH 31.1 (25.0-35.0) pg MCHC 34.7 (31.0-37.0) g/dL RDW 12.1 (11.5-15.5) % Plt Count 259 (150-450) k/uL MPV 8.2 Neutrophils % 71 % Lymphocytes % 22 % Monocytes % 5 % Eosinophils % 1 % Basophils % 0 % Neutrophils # 5.8 (1.3-7.7) k/uL Lymphocytes # 1.8 (1.0-4.8) k/uL Monocytes # 0.4 (0-1.0) k/uL Eosinophils # 0.1 (0-0.7) k/uL Basophils # 0.0 (0-0.2) k/uL Sodium (137-145) mmol/L Potassium (3.5-5.1) mmol/L Chloride (98-107) mmol/L Carbon Dioxide (22-30) mmol/L Anion Gap mmol/L BUN (7-17) mg/dL Creatinine (0.52-1.04) mg/dL Est GFR (CKD-EPI)AfAm (>60 ml/min/1.73 sqM) Est GFR (CKD-EPI)NonAf (>60 ml/min/1.73 sqM) Glucose (74-99) mg/dL Calcium (8.4-10.2) mg/dL Total Bilirubin (0.2-1.3) mg/dL AST (14-36) U/L ALT (4-34) U/L Alkaline Phosphatase (38-126) U/L Total Protein (6.3-8.2) g/dL Albumin (3.5-5.0) g/dL HCG, Quant mIU/mL Urine Color Yellow Urine Appearance Cloudy H (Clear) Urine pH 5.5 (5.0-8.0) Ur Specific [place] 1.021 (1.001-1.035) Urine Protein Trace H (Negative) Urine Glucose (UA) Negative (Negative) Urine Ketones 1+ H (Negative) Urine Blood Trace H (Negative) Urine Nitrite Negative (Negative) Urine Bilirubin Negative (Negative) Urine Urobilinogen <2.0 (<2.0) mg/dL Ur Leukocyte Esterase Large H (Negative) Urine RBC 56 H (0-5) /hpf Urine WBC >182 H (0-5) /hpf Urine WBC Clumps Moderate H (None) /hpf Ur Squamous Epith Cells 24 H (0-4) /hpf Urine Bacteria Few H (None) /hpf Urine Mucus Many H (None) /hpf Urine HCG, Qual Detected (Not Detectd) Blood Type Blood Type Recheck Bld Type Recheck Status 12/22/21 12/22/21 Range/Units 17:13 17:15 WBC (3.8-10.6) k/uL RBC (3.80-5.40) m/uL Hgb (11.4-16.0) gm/dL Hct (34.0-46.0) % MCV (80.0-100.0) fL MCH (25.0-35.0) pg MCHC (31.0-37.0) g/dL RDW (11.5-15.5) % Plt Count (150-450) k/uL MPV Neutrophils % % Lymphocytes % % Monocytes % % Eosinophils % % Basophils % % Neutrophils # (1.3-7.7) k/uL Lymphocytes # (1.0-4.8) k/uL Monocytes # (0-1.0) k/uL Eosinophils # (0-0.7) k/uL Basophils # (0-0.2) k/uL Sodium 137 (137-145) mmol/L Potassium 3.8 (3.5-5.1) mmol/L Chloride 101 (98-107) mmol/L Carbon Dioxide 24 (22-30) mmol/L Anion Gap 12 mmol/L BUN 8 (7-17) mg/dL Creatinine 0.61 (0.52-1.04) mg/dL Est GFR (CKD-EPI)AfAm >90 (>60 ml/min/1.73 sqM) Est GFR (CKD-EPI)NonAf >90 (>60 ml/min/1.73 sqM) Glucose 88 (74-99) mg/dL Calcium 9.4 (8.4-10.2) mg/dL Total Bilirubin 0.6 (0.2-1.3) mg/dL AST 33 (14-36) U/L ALT 22 (4-34) U/L Alkaline Phosphatase 87 (38-126) U/L Total Protein 7.8 (6.3-8.2) g/dL Albumin 4.9 (3.5-5.0) g/dL HCG, Quant 9050.4 mIU/mL Urine Color Urine Appearance (Clear) Urine pH (5.0-8.0) Ur Specific [place] (1.001-1.035) Urine Protein (Negative) Urine Glucose (UA) (Negative) Urine Ketones (Negative) Urine Blood (Negative) Urine Nitrite (Negative) Urine Bilirubin (Negative) Urine Urobilinogen (<2.0) mg/dL Ur Leukocyte Esterase (Negative) Urine RBC (0-5) /hpf Urine WBC (0-5) /hpf Urine WBC Clumps (None) /hpf Ur Squamous Epith Cells (0-4) /hpf Urine Bacteria (None) /hpf Urine Mucus (None) /hpf Urine HCG, Qual (Not Detectd) Blood Type O Positive Blood Type Recheck O Pos Bld Type Recheck Status No - Radiology Data Radiology results: report reviewed, image reviewed Disposition Clinical Impression: Vaginal bleeding during Disposition: HOME SELF-CARE Instructions (If sedation given, give patient instructions): Non-Threatening First Trimester Vaginal Bleed (ED) Additional Instructions: Return to the emergency department with any new, worsening, or concerning symptoms. Take the antibiotic as prescribed for 5 days. Make sure that you start taking a vitamin and become established with an customer advocacy manager. Take Tylenol for any episodes of pain and avoid any ibuprofen or other anti- inflammatories. Take over the counter vitamin B6 with Unisom for any nausea and vomiting. Prescriptions: Cephalexin [Keflex] 500 mg PO Q8HR 5 Days #15 cap Is patient prescribed a controlled substance at d/c from ED?: No Referrals: None,Stated [Primary Care Provider] - 1-2 days Amada Lopez DO [Doctor of Osteopathic Medicine] - 1-2 days
[2021-12-22 17:38] LABS: Basophils % (A) 0 %; Eosinophils # (A) 0.1 k/uL (0-0.7); Eosinophils % (A) 1 %; HCT 41.3 % (34.0-46.0); HGB 14.3 gm/dL (11.4-16.0); Lymphocytes # (A) 1.8 k/uL (1.0-4.8); Lymphocytes % (A) 22 %; MCH 31.1 pg (25.0-35.0); MCHC 34.7 g/dL (31.0-37.0); MCV 89.9 fL (80.0-100.0); Mean Platelet Volume 8.2; Monocytes # (A) 0.4 k/uL (0-1.0); Monocytes % (A) 5 %; Neutrophils # (A) 5.8 k/uL (1.3-7.7); Neutrophils % (A) 71 %; Platelet Count 259 k/uL (150-450); RDW 12.1 % (11.5-15.5); WBC 8.1 k/uL (3.8-10.6)
[2021-12-22 17:50] LABS: ALT 22 U/L (4-34); AST 33 U/L (14-36); African American GFR (CKD) >90 (>60 ml/min/1.73 sqM); Albumin 4.9 g/dL (3.5-5.0); Alkaline Phosphatase 87 U/L (38-126); Anion Gap 12 mmol/L; Blood Urea Nitrogen 8 mg/dL (7-17); Calcium 9.4 mg/dL (8.4-10.2); Carbon Dioxide 24 mmol/L (22-30); Chloride 101 mmol/L (98-107); Glucose 88 mg/dL (74-99); Non-African American GFR(CKD) >90 (>60 ml/min/1.73 sqM); Potassium 3.8 mmol/L (3.5-5.1); Sodium 137 mmol/L (137-145); Total Bilirubin 0.6 mg/dL (0.2-1.3); Total Protein 7.8 g/dL (6.3-8.2)
[2021-12-22 18:06] LABS: HCG,Quantitative Serum 9050.4 mIU/mL
--- NOTE | 2021-12-22 18:39 | US ---
EXAMINATION TYPE: Transabdominal DATE OF EXAM: 12/22/2021 6:15 PM COMPARISON: NONE CLINICAL HISTORY: Pelvic pain and bleeding in . pain and spotting x 2-3 weeks. LMP unknown. . EXAM PERFORMED: Transvaginal (TV) and Transabdominal (TA) EXAM MEASUREMENTS: GESTATIONAL AGE / DATING Physician Established: Not yet established Dates by LMP: LMP unknown ( Dates by First Scan: No previous this is first scan Dates by Current Scan for: Unable to date by today's study MATERNAL ANATOMY Uterus: 6.8 x 4.5 x 3.6 cm Right Ovary: 3.7 x 2.8 x 2.4 cm Left Ovary: 2.7 x 1.9 x 1.6 cm Post CDS / Adnexa: Small amount of free fluid seen in right adnexa Presence of free fluid: right adnexa, post cul de sac Presence of corpus luteal cyst: Possible in right ovary Presence of subchorionic bleed: No GESTATION / SURVEY CRL: Not see MSD: 0.7 x 0.7 x 0.7cm out of range Yolk Sac (normal less than 6mm): Not seen Heart Rate: Not seen IUP: Only a gest sac seen at this time. Date of LMP: Unknown Beta HcG (if available): 9,050 A gestational sac was visualized in the endometrial area. IMPRESSION: Small anechoic intrauterine cystic structure without evidence for yolk sac or pole at this time . This is thought to represent an early gestational sac with a positive beta hCG, however ectopic pre gnancy and abnormal intrauterine cannot be ruled out based on this exam alone. Follow-up [facility] pelvic ultrasound in 7-10 days and serial beta-hCG studies are recommended to en sure further deve lopment of the fetus.
[2021-12-22 19:05] VITALS: BP 114/74; PULSE 80; RESP 18; TEMP 98.7
== END 2021-12-22 19:04 | disposition home or self-care (01) ==
LOC: EC 15:10
DX: O20.8 Other hemorrhage in early pregnancy (principal); J45.909 Unspecified asthma, uncomplicated; Z3A.01 Less than 8 weeks gestation of pregnancy
CPT/HCPCS: 36415; 76801; 76817; 80053; 81001; 81025; 84702; 85025; 86900; 86901; 87086; 99284

== ENCOUNTER 2022-01-05 06:32 | Emergency (ER) | payer OTHER ==
[2022-01-05 07:00] VITALS: TEMP 98.2
[2022-01-05] MEDS ORDERED: diphenhydrAMINE 50 MG/ML 1 ML VIAL IVP STA (07:17)
[2022-01-05] MEDS ORDERED: SODIUM CHLORIDE 0.9% 2,000 ML IV STA (07:17)
[2022-01-05] MEDS ORDERED: METOCLOPRAMIDE 5 MG/ML 2 ML VIAL IVP STA (07:17)
--- NOTE | 2022-01-05 07:29 | ED ---
General Adult HPI - General Chief complaint: Nausea/Vomiting/Diarrhea Stated complaint: Nausea, Vomiting, Abdominal pain, 6 weeks preg. Time Seen by Provider: 01/05/22 06:41 Source: patient, RN notes reviewed Mode of arrival: ambulatory Limitations: no limitations - History of Present Illness Initial comments: 26-year-old female presents emergency Department with chief complaint of nausea vomiting early . Patient's had prior ultrasound confirming . Patient states she suffered with nausea vomiting and her prior . She states she cannot keep anything down last several days, she feels dehydrated. Denies any fevers or chills no dysuria no vaginal bleeding or vaginal discharge patient offers no other complaints. - Related Data Home Medications Medication Instructions Recorded Confirmed Lillow-28 1 tab PO DAILY 05/30/18 05/30/18 Previous Rx's Medication Instructions Recorded Docusate [Colace] 100 mg PO BID #30 capsule 06/04/18 HYDROcodone/APAP 5-325MG [[place] 1 tab PO Q4HR PRN 3 Days #18 tab 06/04/18 5-325] Cephalexin [Keflex] 500 mg PO Q8HR 5 Days #15 cap 12/22/21 Cephalexin [Keflex] 500 mg PO Q8HR #21 cap 01/05/22 Ondansetron Odt [Zofran Odt] 4 mg PO Q8HR PRN #14 tab 01/05/22 Allergies Allergy/AdvReac Type Severity Reaction Status Date / Time bee venom protein (honey bee) Allergy Rash/Hives Verified 01/05/22 06:59 Review of Systems ROS Statement: Those systems with pertinent positive or pertinent negative responses have been documented in the HPI. ROS Other: All systems not noted in ROS Statement are negative. Past Medical History Past Medical History: Asthma Additional Past Medical History / Comment(s): scoliosis History of Any Multi-Drug Resistant Organisms: None Reported Past Surgical History: No Surgical Hx Reported Past Anesthesia/Blood Transfusion Reactions: No Reported Reaction Past Psychological History: Anxiety Smoking Status: Never smoker Past Alcohol Use History: Occasional Past Drug Use History: Marijuana - Past Family History Father Family Medical History: Congestive Heart Failure (CHF), COPD, Diabetes Mellitus General Exam Limitations: no limitations General appearance: alert, in no apparent distress Head exam: Present: atraumatic, normocephalic, normal inspection Eye exam: Present: normal appearance, PERRL, EOMI. Absent: scleral icterus, conjunctival injection, periorbital swelling ENT exam: Present: normal exam, mucous membranes moist Neck exam: Present: normal inspection, full ROM. Absent: tenderness, meningismus, lymphadenopathy Respiratory exam: Present: normal lung sounds bilaterally. Absent: respiratory distress, wheezes, rales, rhonchi, stridor Cardiovascular Exam: Present: regular rate, normal rhythm, normal heart sounds. Absent: systolic murmur, diastolic murmur, rubs, gallop, clicks GI/Abdominal exam: Present: soft, normal bowel sounds. Absent: distended, tenderness, guarding, rebound, rigid Course Vital Signs 01/05/22 06:57 Temperature 98.2 F Pulse Rate 116 H Respiratory 20 Rate Blood Pressure 116/77 O2 Sat by Pulse 99 Oximetry Medical Decision Making - Medical Decision Making 26-year-old female presented for nausea vomiting early . Patient is improved after IV fluids, antiemetics. Patient on be acutely dehydrated, evidence urinary tract infection. Patient was given initial dose of IV antibiotics patient will be discharged with close follow-up return parameters were discussed. - Lab Data Result diagrams: 01/05/22 07:26 01/05/22 07:26 Lab Results 01/05/22 01/05/22 01/05/22 Range/Units 07:26 07:26 07:26 WBC 10.1 (3.8-10.6) k/uL RBC 4.47 (3.80-5.40) m/uL Hgb 14.4 (11.4-16.0) gm/dL Hct 39.1 (34.0-46.0) % MCV 87.5 (80.0-100.0) fL MCH 32.1 (25.0-35.0) pg MCHC 36.7 (31.0-37.0) g/dL RDW 11.9 (11.5-15.5) % Plt Count 228 (150-450) k/uL MPV 8.7 Neutrophils % 86 % Lymphocytes % 9 % Monocytes % 3 % Eosinophils % 1 % Basophils % 0 % Neutrophils # 8.7 H (1.3-7.7) k/uL Lymphocytes # 1.0 (1.0-4.8) k/uL Monocytes # 0.3 (0-1.0) k/uL Eosinophils # 0.1 (0-0.7) k/uL Basophils # 0.0 (0-0.2) k/uL Sodium 135 L (137-145) mmol/L Potassium 3.5 (3.5-5.1) mmol/L Chloride 101 (98-107) mmol/L Carbon Dioxide 18 L (22-30) mmol/L Anion Gap 16 mmol/L BUN 12 (7-17) mg/dL Creatinine 0.64 (0.52-1.04) mg/dL Est GFR (CKD-EPI)AfAm >90 (>60 ml/min/1.73 sqM) Est GFR (CKD-EPI)NonAf >90 (>60 ml/min/1.73 sqM) Glucose 77 (74-99) mg/dL Calcium 8.9 (8.4-10.2) mg/dL Total Bilirubin 0.9 (0.2-1.3) mg/dL AST 21 (14-36) U/L ALT 18 (4-34) U/L Alkaline Phosphatase 72 (38-126) U/L Total Protein 7.0 (6.3-8.2) g/dL Albumin 4.5 (3.5-5.0) g/dL Lipase 26 (23-300) U/L Urine Color Yellow Urine Appearance Cloudy H (Clear) Urine pH 5.5 (5.0-8.0) Ur Specific [place] 1.032 (1.001-1.035) Urine Protein 1+ H (Negative) Urine Glucose (UA) Negative (Negative) Urine Ketones 4+ H (Negative) Urine Blood Trace H (Negative) Urine Nitrite Negative (Negative) Urine Bilirubin Negative (Negative) Urine Urobilinogen 2.0 (<2.0) mg/dL Ur Leukocyte Esterase Large H (Negative) Urine RBC 32 H (0-5) /hpf Urine WBC 137 H (0-5) /hpf Urine WBC Clumps Rare H (None) /hpf Ur Squamous Epith Cells 20 H (0-4) /hpf Amorphous Sediment Rare H (None) /hpf Urine Bacteria Occasional H (None) /hpf Urine Mucus Moderate H (None) /hpf Disposition Clinical Impression: UTI (urinary tract infection), Nausea/vomiting in Disposition: HOME SELF-CARE Condition: Stable Instructions (If sedation given, give patient instructions): Nausea and Vom iting in (ED) Additional Instructions: Please return to the Emergency Department if symptoms worsen or any other concerns. Prescriptions: Cephalexin [Keflex] 500 mg PO Q8HR #21 cap Ondansetron Odt [Zofran Odt] 4 mg PO Q8HR PRN #14 tab PRN Reason: Nausea Is patient prescribed a controlled substance at d/c from ED?: No Referrals: Blake Quiroga MD [Primary Care Provider] - 1-2 days Time of Disposition: 08:21
[2022-01-05 07:46] LABS: Basophils % (A) 0 %; Eosinophils # (A) 0.1 k/uL (0-0.7); Eosinophils % (A) 1 %; HCT 39.1 % (34.0-46.0); HGB 14.4 gm/dL (11.4-16.0); Lymphocytes % (A) 9 %; MCH 32.1 pg (25.0-35.0); MCHC 36.7 g/dL (31.0-37.0); MCV 87.5 fL (80.0-100.0); Mean Platelet Volume 8.7; Monocytes # (A) 0.3 k/uL (0-1.0); Monocytes % (A) 3 %; Neutrophils # (A) 8.7 k/uL (1.3-7.7); Neutrophils % (A) 86 %; Platelet Count 228 k/uL (150-450); RBC 4.47 m/uL (3.80-5.40); RDW 11.9 % (11.5-15.5); WBC 10.1 k/uL (3.8-10.6)
[2022-01-05 08:07] LABS: ALT 18 U/L (4-34); AST 21 U/L (14-36); African American GFR (CKD) >90 (>60 ml/min/1.73 sqM); Albumin 4.5 g/dL (3.5-5.0); Alkaline Phosphatase 72 U/L (38-126); Anion Gap 16 mmol/L; Blood Urea Nitrogen 12 mg/dL (7-17); Calcium 8.9 mg/dL (8.4-10.2); Carbon Dioxide 18 mmol/L (22-30); Chloride 101 mmol/L (98-107); Glucose 77 mg/dL (74-99); Lipase 26 U/L (23-300); Non-African American GFR(CKD) >90 (>60 ml/min/1.73 sqM); Potassium 3.5 mmol/L (3.5-5.1); Sodium 135 mmol/L (137-145); Total Bilirubin 0.9 mg/dL (0.2-1.3)
[2022-01-05 08:10] LABS: Amorphous Sediment,Urine Rare /hpf; Appearance,Urine Cloudy (Clear); Bacteria,Urine Occasional /hpf; Bilirubin,Urine Negative (Negative); Blood,Urine Trace (Negative); Color,Urine Yellow; Glucose,Urine (UA) Negative (Negative); Ketones,Urine 4+ (Negative); Leukocyte Esterase,Urine Large (Negative); Mucus,Urine Moderate /hpf; Nitrite,Urine Negative (Negative); PH, Urine 5.5 (5.0-8.0); Protein,Urine 1+ (Negative); RBC,Urine 32 /hpf (0-5); Specific Gravity,Urine 1.032 (1.001-1.035); Squamous Epithelial Cell,Urine 20 /hpf (0-4); WBC,Urine 137 /hpf (0-5)
[2022-01-05 08:58] VITALS: BP 122/78; PULSE 78; RESP 18
== END 2022-01-05 08:57 | disposition home or self-care (01) ==
LOC: EC 06:32
DX: O23.41 Unspecified infection of urinary tract in pregnancy, first trimester (principal); O21.9 Vomiting of pregnancy, unspecified; Z91.030 Bee allergy status; J45.909 Unspecified asthma, uncomplicated; Z3A.01 Less than 8 weeks gestation of pregnancy
CPT/HCPCS: 36415; 80053; 83690; 85025; 81001; 87086; 96375; 96365; 96361; 99284; J1200; J2765; J0696

== ENCOUNTER 2022-02-03 14:12 | Emergency (ER) | payer OTHER ==
[2022-02-03 15:05] VITALS: TEMP 99.2
[2022-02-03 15:37] LABS: HCT 34.7 % (34.0-46.0); HGB 12.1 gm/dL (11.4-16.0); MCHC 34.8 g/dL (31.0-37.0); MCV 91.8 fL (80.0-100.0); Mean Platelet Volume 8.5; Platelet Count 257 k/uL (150-450); RBC 3.78 m/uL (3.80-5.40); RDW 13.2 % (11.5-15.5); WBC 6.6 k/uL (3.8-10.6)
[2022-02-03 15:49] LABS: Partial Thromboplastin Time 29.5 sec (22.0-30.0)
[2022-02-03 15:51] LABS: ALT 26 U/L (4-34); AST 28 U/L (14-36); African American GFR (CKD) >90 (>60 ml/min/1.73 sqM); Albumin 4.5 g/dL (3.5-5.0); Alkaline Phosphatase 82 U/L (38-126); Anion Gap 7 mmol/L; Blood Urea Nitrogen 9 mg/dL (7-17); Carbon Dioxide 25 mmol/L (22-30); Chloride 107 mmol/L (98-107); Glucose 93 mg/dL (74-99); Non-African American GFR(CKD) >90 (>60 ml/min/1.73 sqM); Potassium 3.6 mmol/L (3.5-5.1); Sodium 139 mmol/L (137-145); Total Bilirubin 0.6 mg/dL (0.2-1.3)
--- NOTE | 2022-02-03 19:08 | ED ---
General Adult HPI - General Chief complaint: Vaginal Bleeding Stated complaint: Vaginal Bleeding Time Seen by Provider: 02/03/22 18:05 Source: patient Mode of arrival: ambulatory - History of Present Illness Initial comments: This is a 26-year-old female with no past medical history presented to the emergency department for continued vaginal bleeding. The patient did undergo a medical 3 weeks ago at which point she was 6-8 weeks . The patient did state that she had significant bleeding continuously since that time however the bleeding did slow down. The patient reported that she had a significant amount of vaginal bleeding that started today with large clots. The patient stated that she has had a headache that was increasing over the last several days but was worse today. The patient denied any soreness of breath however. The patient was concerned of the increased vaginal bleeding she came to the emergency department for evaluation. The patient was resting comfortably and only had some minor suprapubic cramping. The patient denied nausea, v omiting as well as fevers and chills. - Related Data Home Medications Medication Instructions Recorded Confirmed Fcb-Idfv-Rytek Acid 1 cap PO DAILY 02/03/22 02/03/22 [-U Capsule (formulary)] Previous Rx's Medication Instructions Recorded Ondansetron Odt [Zofran Odt] 4 mg PO Q8HR PRN #14 tab 01/05/22 Allergies Allergy/AdvReac Type Severity Reaction Status Date / Time bee venom protein (honey bee) Allergy Rash/Hives Verified 02/03/22 18:58 Review of Systems ROS Statement: Those systems with pertinent positive or pertinent negative responses have been documented in the HPI. ROS Other: All systems not noted in ROS Statement are negative. Past Medical History Past Medical History: Asthma Additional Past Medical History / Comment(s): scoliosis History of Any Multi-Drug Resistant Organisms: None Reported Past Surgical History: No Surgical Hx Reported Past Anesthesia/Blood Transfusion Reactions: No Reported Reaction Past Psychological History: Anxiety Smoking Status: Never smoker Past Alcohol Use History: Occasional Past Drug Use History: Marijuana - Past Family History Father Family Medical History: Congestive Heart Failure (CHF), COPD, Diabetes Mellitus General Exam Limitations: no limitations General appearance: alert, in no apparent distress Head exam: Present: atraumatic, normocephalic, normal inspection Eye exam: Present: normal appearance, PERRL, EOMI Pupils: Present: normal accommodation ENT exam: Present: normal exam, normal oropharynx Neck exam: Present: normal inspection Respiratory exam: Present: normal lung sounds bilaterally Cardiovascular Exam: Present: regular rate, normal rhythm, normal heart sounds GI/Abdominal exam: Present: soft, other (Minimal suprapubic tenderness to palpation) Rectal exam: Present: deferred External exam: Present: other (Deferred to OBGYN) Extremities exam: Present: normal inspection, full ROM, normal capillary refill Back exam: Present: normal inspection, full ROM Neurological exam: Present: alert, oriented X3, CN II-XII intact Psychiatric exam: Present: normal affect, normal mood Skin exam: Present: warm, dry Course Vital Signs 02/03/22 02/03/22 15:00 19:04 Temperature 99.2 F Pulse Rate 81 74 Respiratory 18 16 Rate Blood Pressure 125/81 118/79 O2 Sat by Pulse 98 98 Oximetry Medical Decision Making - Medical Decision Making The patient was seen and evaluated in the department. Physical exam, the patient was resting in bed without any acute distress. Stable within normal limits. Blood was obtained and are within normal limits. Transvaginal ultrasound was obtained as well to rule out retained parts of conception. Laboratory workup was obtained and was within normal limits. A transvaginal ultrasound did show findings concerning for retained products of conception. PERIPHERAL VASCULAR TECH on-call, Dr. Yost, was contacted and did come to the emergency department to admit the patient. She did attempt to remove the blood clot that was in the distal portion of the uterus about the cervix however was unsuccessful for complete removal. She did recommend a dose of 800 mg of ducal Cytotec since the patient's vital signs and hemoglobin were stable. The patient was deemed sober for discharge and was to follow-up in the office in 2 weeks for continued evaluation. The patient was also advised to report back to the emergency department if she had worsening vaginal bleeding or any lightheadedness or dizziness. The patient was agreeable to this and all of her questions were answered. The patient was discharged home in stable condition. - Lab Data Result diagrams: 02/03/22 15:05 02/03/22 15:08 Lab Results 02/03/22 02/03/22 02/03/22 Range/Units 13:04 15:05 15:08 WBC 6.6 (3.8-10.6) k/uL RBC 3.78 L (3.80-5.40) m/uL Hgb 12.1 (11.4-16.0) gm/dL Hct 34.7 (34.0-46.0) % MCV 91.8 (80.0-100.0) fL MCH 32.0 (25.0-35.0) pg MCHC 34.8 (31.0-37.0) g/dL RDW 13.2 (11.5-15.5) % Plt Count 257 (150-450) k/uL MPV 8.5 PT 11.0 (9.0-12.0) sec INR 1.0 (<1.2) APTT 29.5 (22.0-30.0) sec Sodium (137-145) mmol/L Potassium (3.5-5.1) mmol/L Chloride (98-107) mmol/L Carbon Dioxide (22-30) mmol/L Anion Gap mmol/L BUN (7-17) mg/dL Creatinine (0.52-1.04) mg/dL Est GFR (CKD-EPI)AfAm (>60 ml/min/1.73 sqM) Est GFR (CKD-EPI)NonAf (>60 ml/min/1.73 sqM) Glucose (74-99) mg/dL Calcium (8.4-10.2) mg/dL Total Bilirubin (0.2-1.3) mg/dL AST (14-36) U/L ALT (4-34) U/L Alkaline Phosphatase (38-126) U/L Total Protein (6.3-8.2) g/dL Albumin (3.5-5.0) g/dL HCG, Quant mIU/mL Blood Type O Positive Blood Type Recheck O Pos Bld Type Recheck Status No 02/03/22 02/03/22 Range/Units 15:08 15:15 WBC (3.8-10.6) k/uL RBC (3.80-5.40) m/uL Hgb (11.4-16.0) gm/dL Hct (34.0-46.0) % MCV (80.0-100.0) fL MCH (25.0-35.0) pg MCHC (31.0-37.0) g/dL RDW (11.5-15.5) % Plt Count (150-450) k/uL MPV PT (9.0-12.0) sec INR (<1.2) APTT (22.0-30.0) sec Sodium 139 (137-145) mmol/L Potassium 3.6 (3.5-5.1) mmol/L Chloride 107 (98-107) mmol/L Carbon Dioxide 25 (22-30) mmol/L Anion Gap 7 mmol/L BUN 9 (7-17) mg/dL Creatinine 0.71 (0.52-1.04) mg/dL Est GFR (CKD-EPI)AfAm >90 (>60 ml/min/1.73 sqM) Est GFR (CKD-EPI)NonAf >90 (>60 ml/min/1.73 sqM) Glucose 93 (74-99) mg/dL Calcium 9.0 (8.4-10.2) mg/dL Total Bilirubin 0.6 (0.2-1.3) mg/dL AST 28 (14-36) U/L ALT 26 (4-34) U/L Alkaline Phosphatase 82 (38-126) U/L Total Protein 7.0 (6.3-8.2) g/dL Albumin 4.5 (3.5-5.0) g/dL HCG, Quant 1152.6 mIU/mL Blood Type Blood Type Recheck Bld Type Recheck Status Disposition Clinical Impression: Retained products of conception Disposition: HOME SELF-CARE Condition: Stable Instructions (If sedation given, give patient instructions): Misoprostol (By mouth) Is patient prescribed a controlled substance at d/c from ED?: No Referrals: Blake Quiroga MD [Primary Care Provider] - 1-2 days Time of Disposition: 20:53
--- NOTE | 2022-02-03 19:32 | US ---
EXAMINATION TYPE: US transvaginal DATE OF EXAM: 02/03/2022 COMPARISON: Recent ultrasound December 22, 2021 CLINICAL HISTORY: vaginal bleeding, recent . Bleeding clots had x 3 weeks ago. TECHNIQUE: Transvaginal (TV). EXAM MEASUREMENTS: Uterus: 7.1 x 3.5 x 4.4 cm Endometrial Stripe: 1.4 cm Right Ovary: 2.4 x 1.5 x 3.5 cm Left Ovary: 3.3 x 1.9 x 2.0 cm 1. Uterus: Anteverted hyperechoic cervix area measuring 2 cm. 2. Endometrium: heterogenous with increased vascularity. 3. Right Ovary: wnl 4. Left Ovary: wnl Spectral, color and waveform doppler imaging shows good arterial and venous flow within the ovaries ; 5. Bilateral Adnexa: wnl 6. Posterior cul-de-sac: wnl Heterogeneous uterus with slightly thickened 1.4 cm hypervascular endometrium in the fundus. In the c ervix there is central avascular 2.0 cm heterogeneous hyperechoic area favoring blood clot ready to p ass. No free fluid in the pelvis. Ovaries symmetric and within normal limits. IMPRESSION: Ultrasound findings consistent with retained products of conception
[2022-02-03] MEDS ORDERED: miSOPROStoL 200 MCG TAB PO STA (20:51)
--- NOTE | 2022-02-03 21:02 | P.OBCN ---
History of Present Illness Consult date: 02/03/22 Reason for consult: early problem (Bleeding status post medical ) Chief complaint: Bleeding status post medical 3 weeks ago History of present illness: This is a 26-year-old 3 para 1011 woman who had a voluntary medical termination of on 01/09/2022. She had a first trimester and received a two-step medical . She had immediate bleeding and passage of tissue on 01/10/2022. She then had moderate bleeding for approximately 1 week. This significantly decreased over time until when she was at work today when she commenced having heavy bright red vaginal bleeding and passage of moderate sized clots. She has minimal abdominal pain. She denies fevers, chills, nausea, vomiting or urinary symptoms. HCG is approximately 1100. Pelvic ultrasound shows small uterus measuring 7.1 x 3.5 x 4.4 cm. Endometrial stripe is heterogeneous and vascular measuring 1.4 cm. There is hypoechoic 2 cm collection in the cervical canal. No adnexal masses or free fluid in the pelvis noted. Blood type is O+. Hemoglobin 12.1. Normal WBCs. Review of Systems All systems: negative Past Medical History Past Medical History: Asthma Additional Past Medical History / Comment(s): scoliosis History of Any Multi-Drug Resistant Organisms: None Reported Past Surgical History: No Surgical Hx Reported Past Anesthesia/Blood Transfusion Reactions: No Reported Reaction Past Psychological History: Anxiety Smoking Status: Never smoker Past Alcohol Use History: Occasional Past Drug Use History: Marijuana - Past Family History Father Family Medical History: Congestive Heart Failure (CHF), COPD, Diabetes Mellitus Medications and Allergies Home Medications Medication Instructions Recorded Confirmed Type Ondansetron Odt [Zofran Odt] 4 mg PO Q8HR PRN #14 tab 01/05/22 02/03/22 Rx Hji-Liqv-Nwgxh Acid 1 cap PO DAILY 02/03/22 02/03/22 History [-U Capsule (formulary)] Allergies Allergy/AdvReac Type Severity Reaction Status Date / Time bee venom protein (honey bee) Allergy Rash/Hives Verified 02/03/22 18:58 Exam Vital Signs Temp Pulse Resp BP Pulse Ox 02/03/22 15:00 99.2 F 81 18 125/81 98 Intake and Output 02/03/22 02/03/22 02/03/22 06:59 14:59 22:59 Other: Weight 54.431 kg This is a pleasant, comfortably appearing female in no acute distress. Targeted physical exam is performed. The abdomen is slim, soft and nontender with no rebound, no guarding and no flank pain. On chaperoned pelvic exam she has normal female external genitalia without lesions or discharge. There is no evidence of active bleeding on the perineum. Speculum was placed in the vagina and there is a small to moderate amount of dark red blood in the vaginal vault. There is some clot and debris at the cervical os which is removed with ring forcep. This is approximately dime-sized. There is no further tissue at the os. On bimanual examination the uterus is small, less than 6 weeks size, nontender and freely mobile. The cervix is 1 cm dilated. I can feel a small amount of tissue midway up the cervical canal. This is consistent with findings on ultrasound.. Results Result Diagrams: 02/03/22 15:05 02/03/22 15:08 Abnormal Lab Results - Last 24 Hours (Table) 02/03/22 Range/Units 15:05 RBC 3.78 L (3.80-5.40) m/uL Assessment and Plan (1) Incomplete Current Visit: Yes Status: Acute Code(s): O03.4 - INCOMPLETE SPONTANEOUS WITHOUT COMPLICATION SNOMED Code(s): 629369523 Plan: This is a 26-year-old 3 para 1011 woman 3 weeks status post medical with small amount of retained tissue without evidence of hemorrhage or infection. No evidence of ectopic . Recommend repeat dose of 800 g of misoprostel broccoli. Patient and her partner were counseled regarding the treatment plan and to expect some bleeding and cramping over the next 24-48 hours. Bleeding precautions were reviewed. The patient's blood type is O+. We did briefly discuss contraceptive options and need for follow-up in the office setting. She can follow up with me in 2 weeks. May use [id number]-[id number] ibuprofen and/or Tylenol as needed for pain. Consider iron supplement 350 mg once daily. Time with Patient: Greater than 30
[2022-02-03 21:23] VITALS: BP 118/79; PULSE 74; RESP 16
== END 2022-02-03 21:24 | disposition home or self-care (01) ==
LOC: EC 14:12
DX: O73.1 Retained portions of placenta and membranes, without hemorrhage (principal); J45.909 Unspecified asthma, uncomplicated; F41.9 Anxiety disorder, unspecified; F12.90 Cannabis use, unspecified, uncomplicated; Z3A.08 8 weeks gestation of pregnancy; Z91.030 Bee allergy status
CPT/HCPCS: 36415; 86900; 86901; 80053; 85027; 85610; 85730; 84702; 93975; 76830; 99284; S0191

== ENCOUNTER 2022-09-01 07:10 | Emergency (ER) | payer OTHER ==
[2022-09-01] MEDS ORDERED: IBUPROFEN 800 MG TAB PO STA (07:54)
[2022-09-01] MEDS ORDERED: ONDANSETRON ODT 4 MG TAB PO STA (07:54)
[2022-09-01] MEDS ORDERED: ACETAMINOPHEN TAB 500 MG TAB PO STA (07:54)
--- NOTE | 2022-09-01 08:17 | ED ---
General Adult HPI - General Chief complaint: Urogenital Stated complaint: Uti Time Seen by Provider: 09/01/22 07:43 Source: patient, RN notes reviewed, old records reviewed Mode of arrival: ambulatory Limitations: no limitations - History of Present Illness Initial comments: Patient is a 27-year-old female with past medical history remarkable for UTIs p resents to the emergency department with symptoms concerning for UTI. She endorses some mild hematuria, dysuria, as well as some suprapubic abdominal discomfort. Denies any radiation of the pain. Denies any diarrhea. Does endorse some nausea with the pain. Denies being . Denies any vaginal discharge, however does have some vaginal spotting following completion of her menstrual cycle recently. Denies any chest pain, shortness breath, fevers, cough. His no other acute complaints at this time. Presents for symptoms concerning for UTI. - Related Data Home Medications Medication Instructions Recorded Confirmed Txq-Lqmr-Tvenm Acid 1 cap PO DAILY 02/03/22 02/03/22 [-U Capsule (formulary)] Previous Rx's Medication Instructions Recorded Ondansetron Odt [Zofran Odt] 4 mg PO Q8HR PRN #14 tab 01/05/22 Ondansetron Odt [Zofran Odt] 4 mg PO Q8HR PRN 2 Days #6 tab 09/01/22 Sulfamethox-Tmp 800-160Mg [Bactrim 1 tab PO Q12HR 7 Days #14 tab 09/01/22 DS 800-160 mg] Allergies Allergy/AdvReac Type Severity Reaction Status Date / Time bee venom protein (honey bee) Allergy Rash/Hives Verified 02/03/22 18:58 Review of Systems ROS Statement: Those systems with pertinent positive or pertinent negative responses have been documented in the HPI. Review of Systems: CONST: Denies fever EYES: Denies blurry vision ENT: Denies nasal congestion C/V: Denies Chest pain RESP: Denies shortness of breath GI: Denies abdominal pain : Endorses dysuria SKIN: Denies rash. MSK: Denies joint pain. NEURO: Denies headache ROS Other: All systems not noted in ROS Statement are negative. Past Medical History Past Medical History: Asthma Additional Past Medical History / Comment(s): scoliosis History of Any Multi-Drug Resistant Organisms: None Reported Past Surgical History: No Surgical Hx Reported Past Anesthesia/Blood Transfusion Reactions: No Reported Reaction Past Psychological History: Anxiety Smoking Status: Never smoker Past Alcohol Use History: Occasional Past Drug Use History: Marijuana - Past Family History Father Family Medical History: Congestive Heart Failure (CHF), COPD, Diabetes Mellitus General Exam - General Exam Comments Initial Comments: General: Appears in no acute distress. Afebrile. HEAD: Normal with no signs of head trauma. EYES: EOMI. ENT: Hearing grossly intact. RESPIRATORY: No respiratory distress. C/V: Regular rate and rhythm. ABD: Mild suprapubic abdominal discomfort. Nondistended. No guarding. No peritoneal signs. No rebound tenderness. No point tenderness. No CVA tenderness to percussion. EXT: No obvious deformity. SKIN: No rashes or lesions observed on exposed skin. NEURO: Alert and oriented. Limitations: no limitations Course Vital Signs 09/01/22 09/01/22 07:31 08:30 Temperature 97.4 F L 97.9 F Pulse Rate 73 83 Respiratory 18 16 Rate Blood Pressure 133/91 121/77 O2 Sat by Pulse 97 96 Oximetry Medical Decision Making - Medical Decision Making Was pt. sent in by a medical professional or institution (, PA, PHOTO EQUIPMENT TECHNICIAN, urgent care, hospital, or senior living...) When possible be specific @ -No Did you speak to anyone other than the patient for history (EMS, parent, family, police, friend...)? What history was obtained from this source @ -No Did you review nursing and triage notes (agree or disagree)? Why? @ -I reviewed and agree with nursing and triage notes Were old charts reviewed (outside hosp., previous admission, EMS record, old EKG, old radiological studies, urgent care reports/EKG's, senior living records)? Report findings @ -No old charts were reviewed Differential Diagnosis (chest pain, altered mental status, abdominal pain women, abdominal pain men, vaginal bleeding, weakness, fever, dyspnea, syncope, head ache, dizziness, GI bleed, back pain, seizure, CVA, palpatations, mental health, musculoskeletal)? @ -UTI, cystitis, . This list is not all inclusive. EKG interpreted by me (3pts min.). @ -None done X-rays interpreted by me (1pt min.). @ -None done CT interpreted by me (1pt min.). @ -None done U/S interpreted by me (1pt. min.). @ -None done What testing was considered but not performed or refused? (CT, X-rays, U/S, labs)? Why? @ -None What meds were considered but not given or refused? Why? @ -None Did you discuss the management of the patient with other professionals (professionals i.e. Dr., PA, PHOTO EQUIPMENT TECHNICIAN, lab, RT, psych nurse, social professionals, in tube conversion technician, teacher, cra officer, telephonic nurse case manager)? Give summary @ -No Was smoking cessation discussed for >3mins.? @ -No Was critical care preformed (if so, how long)? @ -No Were there social determinants of health that impacted care today? How? (Homelessness, low income, unemployed, alcoholism, drug addiction, transportation, low edu. Level, literacy, decrease access to med. care, custodial, rehab)? @ -No Was there de-escalation of care discussed even if they declined (Discuss DNR or withdrawal of care, Hospice)? DNR status @ -No What co-morbidities impacted this encounter? (DM, HTN, Smoking, COPD, CAD, Cancer, CVA, ARF, Chemo, Hep., AIDS, mental health diagnosis, sleep apnea, morbid obesity)? @ -None Was patient admitted / discharged? Hospital course, mention meds given and route, prescriptions, significant lab abnormalities, going to OR and other pertinent info. @ -Based on The patient's presentation and physical exam, I'm concerned for a UTI. Patient. We will obtain a urinalysis, urine test. She will be symptomatically treated with oral Tylenol and Motrin as well as ODT Zofran. This was in agreement this plan. Vital signs within acceptable limits. I did offer laboratory studies, however we did discuss that we low suspicion for renal involvement at this time. She declines an IV. Urinalysis returns remarkable for UTI. I updated the patient. She will be given a dose of Bactrim as well as prescription for Bactrim and Zofran ODT. Strict return precautions discussed. She remains medically stable at this time. Pain is somewhat improved as well. She was in agreement this plan. Patient is not . I will provide the patient with a prescription for Bactrim, Zofran. I instructed the patient to follow up with their PCP in the next 1-3 days. . I explained that the patient should return to the emergency department if they experience any worsening symptoms. Strict return precautions were discussed with the patient. The patient expressed understanding of these instructions. I answered all questions that the patient had. The patient was discharged home in good condition with their prescriptions and follow up information. Undiagnosed new problem with uncertain prognosis? @ -No Drug Therapy requiring intensive monitoring for toxicity (Heparin, Nitro, Insulin, Cardizem)? @ -No Were any procedures done? @ -No Diagnosis/symptom? @ -UTI Acute, or Chronic, or Acute on Chronic? @ -Acute Uncomplicated (without systemic symptoms) or Complicated (systemic symptoms)? @ -Complicated Side effects of treatment? @ -none Exacerbation, Progression, or Severe Exacerbation] @ -no Poses a threat to life or bodily function? @ -no - Lab Data Lab Results 09/01/22 09/01/22 Range/Units 08:21 08:21 Urine Color Yellow Urine Appearance Turbid H (Clear) Urine pH 6.0 (5.0-8.0) Ur Specific [place] 1.023 (1.001-1.035) Urine Protein 2+ H (Negative) Urine Glucose (UA) Negative (Negative) Urine Ketones Negative (Negative) Urine Blood Large H (Negative) Urine Nitrite Negative (Negative) Urine Bilirubin Negative (Negative) Urine Urobilinogen <2.0 (<2.0) mg/dL Ur Leukocyte Esterase Large H (Negative) Urine RBC >182 H (0-5) /hpf Urine WBC >182 H (0-5) /hpf Urine WBC Clumps Many H (None) /hpf Ur Squamous Epith Cells 2 (0-4) /hpf Urine Bacteria Occasional H (None) /hpf Urine Mucus Occasional H (None) /hpf Urine HCG, Qual Not Detected (Not Detectd) Disposition Clinical Impression: Urinary tract infection Disposition: HOME SELF-CARE Condition: Good Instructions (If sedation given, give patient instructions): Urinary Tract Infection in Women (ED) Prescriptions: Sulfamethox-Tmp 800-160Mg [Bactrim DS 800-160 mg] 1 tab PO Q12HR 7 Days #14 tab Ondansetron Odt [Zofran Odt] 4 mg PO Q8HR PRN 2 Days #6 tab PRN Reason: Nausea Is patient prescribed a controlled substance at d/c from ED?: No Referrals: Blake Quiroga MD [Primary Care Provider] - 1-2 days Time of Disposition: 09:08
[2022-09-01 08:31] VITALS: BP 121/77; PULSE 83; RESP 16; TEMP 97.9
[2022-09-01 08:54] LABS: Appearance,Urine Turbid (Clear); Color,Urine Yellow; Protein,Urine 2+ (Negative); Specific Gravity,Urine 1.023 (1.001-1.035)
[2022-09-01 08:55] LABS: Bacteria,Urine Occasional /hpf; Bilirubin,Urine Negative (Negative); Blood,Urine Large (Negative); Glucose,Urine (UA) Negative (Negative); Ketones,Urine Negative (Negative); Leukocyte Esterase,Urine Large (Negative); Mucus,Urine Occasional /hpf; Nitrite,Urine Negative (Negative); RBC,Urine >182 /hpf (0-5); Squamous Epithelial Cell,Urine 2 /hpf (0-4); Urobilinogen,Urine <2.0 mg/dL (<2.0); WBC,Urine >182 /hpf (0-5)
[2022-09-01] MEDS ORDERED: SULFAMETHOX-TMP 800-160MG 1 EACH TAB PO STA (09:16)
== END 2022-09-01 09:27 | disposition home or self-care (01) ==
LOC: EC 07:10
DX: N39.0 Urinary tract infection, site not specified (principal); J45.909 Unspecified asthma, uncomplicated; F12.90 Cannabis use, unspecified, uncomplicated; Z91.030 Bee allergy status
CPT/HCPCS: 81001; 81025; 87086; 99284

== ENCOUNTER 2022-10-01 16:54 | Emergency (ER) | payer OTHER ==
[2022-10-01 17:19] VITALS: TEMP 98.1
[2022-10-01] MEDS ORDERED: PHENAZOPYRIDINE 200 MG TAB PO STA (17:34)
--- NOTE | 2022-10-01 17:49 | ED ---
Female Urogenital HPI - General Chief complaint: Urogenital Stated complaint: UTI Time Seen by Provider: 10/01/22 17:28 Source: patient Mode of arrival: ambulatory Limitations: no limitations - History of Present Illness Initial comments: 27-year-old female presenting with chief complaint of dysuria. Symptoms have been ongoing for the last 3-4 days. She also admits to general irritation of the vulva. No vaginal bleeding or discharge. No flank pain, nausea, vomiting, hematuria. - Related Data Home Medications Medication Instructions Recorded Confirmed Qzo-Pnet-Dxsti Acid 1 cap PO DAILY 02/03/22 02/03/22 [-U Capsule (formulary)] Previous Rx's Medication Instructions Recorded Ondansetron Odt [Zofran Odt] 4 mg PO Q8HR PRN #14 tab 01/05/22 Ondansetron Odt [Zofran Odt] 4 mg PO Q8HR PRN 2 Days #6 tab 09/01/22 Sulfamethox-Tmp 800-160Mg [Bactrim 1 tab PO Q12HR 7 Days #14 tab 09/01/22 DS 800-160 mg] Nitrofurantoin Monohyd/M-Cryst 100 mg PO Q12HR 5 Days #10 cap 10/01/22 [Macrobid] Phenazopyridine [Pyridium] 100 mg PO TID #6 tablet 10/01/22 Allergies Allergy/AdvReac Type Severity Reaction Status Date / Time bee venom protein (honey bee) Allergy Rash/Hives Verified 10/01/22 17:19 Review of Systems ROS Statement: Those systems with pertinent positive or pertinent negative responses have been documented in the HPI. ROS Other: All systems not noted in ROS Statement are negative. Past Medical History Past Medical History: Asthma Additional Past Medical History / Comment(s): scoliosis History of Any Multi-Drug Resistant Organisms: None Reported Past Surgical History: No Surgical Hx Reported Past Anesthesia/Blood Transfusion Reactions: No Reported Reaction Past Psychological History: Anxiety Smoking Status: Never smoker Past Alcohol Use History: Occasional Past Drug Use History: Marijuana - Past Family History Father Family Medical History: Congestive Heart Failure (CHF), COPD, Diabetes Mellitus General Exam Limitations: no limitations General appearance: alert, in no apparent distress Head exam: Present: atraumatic, normocephalic, normal inspection Eye exam: Present: normal appearance Neck exam: Present: normal inspection, full ROM Respiratory exam: Present: normal lung sounds bilaterally. Absent: respiratory distress, wheezes, rales, rhonchi, stridor Cardiovascular Exam: Present: regular rate, normal rhythm, normal heart sounds. Absent: systolic murmur, diastolic murmur, rubs, gallop, clicks Neurological exam: Present: alert, oriented X3, CN II-XII intact Psychiatric exam: Present: normal affect, normal mood Skin exam: Present: warm, dry, intact, normal color. Absent: rash Course Vital Signs 10/01/22 10/01/22 17:15 19:45 Temperature 98.1 F Pulse Rate 83 68 Respiratory 20 16 Rate Blood Pressure 121/77 110/60 O2 Sat by Pulse 97 98 Oximetry Medical Decision Making - Medical Decision Making Was pt. sent in by a medical professional or institution (, PA, STRATEGY SPECIALIST, urgent care, hospital, or long-term...) When possible be specific @ -No Did you speak to anyone other than the patient for history (EMS, parent, family, police, friend...)? What history was obtained from this source @ -No Did you review nursing and triage notes (agree or disagree)? Why? @ -I reviewed and agree with nursing and triage notes Were old charts reviewed (outside hosp., previous admission, EMS record, old EKG, old radiological studies, urgent care reports/EKG's, long-term records)? Report findings @ -No old charts were reviewed Differential Diagnosis (chest pain, altered mental status, abdominal pain women, abdominal pain men, vaginal bleeding, weakness, fever, dyspnea, syncope, headache, dizziness, GI bleed, back pain, seizure, CVA, palpatations, mental health, musculoskeletal)? @ -Differential includes UTI, pyelonephritis, kidney stone, this is not an all inclusive list EKG interpreted by me (3pts min.). @ -As above X-rays interpreted by me (1pt min.). @ -None done CT interpreted by me (1pt min.). @ -None done U/S interpreted by me (1pt. min.). @ -None done What testing was considered but not performed or refused? (CT, X-rays, U/S, labs)? Why? @ -None What meds were considered but not given or refused? Why? @ -None Did you discuss the management of the patient with other professionals (professionals i.e. , PA, STRATEGY SPECIALIST, lab, RT, psych nurse, neonatal social worker, lawyer criminal, teacher, parole or probation officer, counter caser)? Give summary @ -No Was smoking cessation discussed for >3mins.? @ -No Was critical care preformed (if so, how long)? @ -No Were there social determinants of health that impacted care today? How? (Homelessness, low income, unemployed, alcoholism, drug addiction, transportation, low edu. Level, literacy, decrease access to med. care, correction, rehab)? @ -No Was there de-escalation of care discussed even if they declined (Discuss DNR or withdrawal of care, Hospice)? DNR status @ -No What co-morbidities impacted this encounter? (DM, HTN, Smoking, COPD, CAD, Cancer, CVA, ARF, Chemo, Hep., AIDS, mental health diagnosis, sleep apnea, morbid obesity)? @ -None Was patient admitted / discharged? Hospital course, mention meds given and route, prescriptions, significant lab abnormalities, going to OR and other pertinent info. @ -27-year-old female presenting with chief complaint of dysuria. Urine is positive for UTI with large leukocytes and moderate blood. HCG is negative. Urine is sent for culture. Patient is started on Macrobid and pyridium. Follow- up with PCP. Report back to ER with any new or worsening symptoms. Discussed return parameters and answered all questions. Patient conveyed verbal understanding and agreed to the plan. I discussed this case in detail with my attending Dr. Arguello Undiagnosed new problem with uncertain prognosis? @ -No Drug Therapy requiring intensive monitoring for toxicity (Heparin, Nitro, Insulin, Cardizem)? @ -No Were any procedures done? @ -No Diagnosis/symptom? @ -UTI Acute, or Chronic, or Acute on Chronic? @ -Acute Uncomplicated (without systemic symptoms) or Complicated (systemic symptoms)? @ -Uncomplicated Side effects of treatment? @ -No Exacerbation, Progression, or Severe Exacerbation? @ -No Poses a threat to life or bodily function? How? (Chest pain, [place], [place], pneumonia, PE, COPD, DKA, ARF, appy, cholecystitis, CVA, Diverticulitis, Homicidal, Suicidal, threat to staff... and all critical care pts) @ -No - Lab Data Lab Results 10/01/22 10/01/22 Range/Units 17:34 17:34 Urine Color Dark Yellow Urine Appearance Cloudy H (Clear) Urine pH 6.0 (5.0-8.0) Ur Specific [place] 1.027 (1.001-1.035) Urine Protein 1+ H (Negative) Urine Glucose (UA) Negative (Negative) Urine Ketones Negative (Negative) Urine Blood Moderate H (Negative) Urine Nitrite Negative (Negative) Urine Bilirubin Negative (Negative) Urine Urobilinogen <2.0 (<2.0) mg/dL Ur Leukocyte Esterase Large H (Negative) Urine RBC 43 H (0-5) /hpf Urine WBC >182 H (0-5) /hpf Ur Squamous Epith Cells 3 (0-4) /hpf Urine Mucus Few H (None) /hpf Urine HCG, Qual Not Detected (Not Detectd) Disposition Clinical Impression: UTI (urinary tract infection) Disposition: HOME SELF-CARE Condition: Good Instructions (If sedation given, give patient instructions): Urinary Tract Infection in Women (ED) Additional Instructions: Follow-up with PCP. Report back to ER with any new or worsening symptoms. Take medication as prescribed. Prescriptions: Nitrofurantoin Monohyd/M-Cryst [Macrobid] 100 mg PO Q12HR 5 Days #10 cap Phenazopyridine [Pyridium] 100 mg PO TID #6 tablet Is patient prescribed a controlled substance at d/c from ED?: No Referrals: Blake Quiroga MD [Primary Care Provider] - 1-2 days Time of Disposition: 19:19
[2022-10-01 19:01] LABS: Appearance,Urine Cloudy (Clear); Bilirubin,Urine Negative (Negative); Blood,Urine Moderate (Negative); Color,Urine Dark Yellow; Glucose,Urine (UA) Negative (Negative); Ketones,Urine Negative (Negative); Leukocyte Esterase,Urine Large (Negative); Mucus,Urine Few /hpf; Nitrite,Urine Negative (Negative); Protein,Urine 1+ (Negative); RBC,Urine 43 /hpf (0-5); Specific Gravity,Urine 1.027 (1.001-1.035); Squamous Epithelial Cell,Urine 3 /hpf (0-4); Urobilinogen,Urine <2.0 mg/dL (<2.0); WBC,Urine >182 /hpf (0-5)
[2022-10-01] MEDS ORDERED: NITROFURANTOIN MONOHYD/M-CRYST 100 MG CAP PO STA (19:18)
[2022-10-01 19:45] VITALS: BP 110/60; PULSE 68; RESP 16
== END 2022-10-01 19:45 | disposition home or self-care (01) ==
LOC: EC 16:54
DX: N39.0 Urinary tract infection, site not specified (principal); J45.909 Unspecified asthma, uncomplicated; F12.90 Cannabis use, unspecified, uncomplicated; Z91.030 Bee allergy status
CPT/HCPCS: 81001; 81025; 87086; 99283

== ENCOUNTER 2023-02-09 12:04 | Emergency (ER) | payer OTHER ==
[2023-02-09 12:20] VITALS: TEMP 98.2
[2023-02-09 12:21] LABS: Appearance,Urine Turbid (Clear); Bacteria,Urine Occasional /hpf; Bilirubin,Urine Negative (Negative); Blood,Urine Moderate (Negative); Color,Urine Yellow; Glucose,Urine (UA) Negative (Negative); Ketones,Urine Negative (Negative); Leukocyte Esterase,Urine Large (Negative); Mucus,Urine Occasional /hpf; Nitrite,Urine Negative (Negative); PH, Urine 5.5 (5.0-8.0); Protein,Urine 1+ (Negative); RBC,Urine 35 /hpf (0-5); Specific Gravity,Urine 1.022 (1.001-1.035); Squamous Epithelial Cell,Urine 26 /hpf (0-4); Urobilinogen,Urine <2.0 mg/dL (<2.0); WBC,Urine >182 /hpf (0-5)
[2023-02-09] MEDS ORDERED: PHENAZOPYRIDINE 200 MG TAB PO STA (12:52)
[2023-02-09] MEDS ORDERED: CEPHALEXIN 500MG STARTER PACK 4 CAP BTL PO STA (13:00)
--- NOTE | 2023-02-09 13:01 | ED ---
Female Urogenital HPI - General Chief complaint: Urogenital Stated complaint: UTI Time Seen by Provider: 02/09/23 12:49 Source: patient, RN notes reviewed Mode of arrival: ambulatory Limitations: no limitations - History of Present Illness Initial comments: Patient is a 27-year-old female presented ER with chief complaint of UTI. Patient states when she woke this morning she was having extreme dysuria and suprapubic pain. Patient states she has recurrent UTIs. Patient denies any fevers, chills, night sweats. She has no other complaints at this time. - Related Data Home Medications Medication Instructions Recorded Confirmed Vau-Clvz-Dtjod Acid 1 cap PO DAILY 02/03/22 02/03/22 [-U Capsule (formulary)] Previous Rx's Medication Instructions Recorded Ondansetron Odt [Zofran Odt] 4 mg PO Q8HR PRN #14 tab 01/05/22 Ondansetron Odt [Zofran Odt] 4 mg PO Q8HR PRN 2 Days #6 tab 09/01/22 Sulfamethox-Tmp 800-160Mg [Bactrim 1 tab PO Q12HR 7 Days #14 tab 09/01/22 DS 800-160 mg] Nitrofurantoin Monohyd/M-Cryst 100 mg PO Q12HR 5 Days #10 cap 10/01/22 [Macrobid] Phenazopyridine [Pyridium] 100 mg PO TID #6 tablet 10/01/22 Cephalexin [Keflex] 500 mg PO Q6HR #40 cap 02/09/23 Phenazopyridine [Pyridium] 200 mg PO TID #6 tablet 02/09/23 Allergies Allergy/AdvReac Type Severity Reaction Status Date / Time bee venom protein (honey bee) Allergy Rash/Hives Verified 02/09/23 12:07 Review of Systems ROS Statement: Those systems with pertinent positive or pertinent negative responses have been documented in the HPI. ROS Other: All systems not noted in ROS Statement are negative. Past Medical History Past Medical History: Asthma Additional Past Medical History / Comment(s): scoliosis History of Any Multi-Drug Resistant Organisms: None Reported Past Surgical History: No Surgical Hx Reported Past Anesthesia/Blood Transfusion Reactions: No Reported Reaction Past Psychological History: Anxiety Smoking Status: Never smoker Past Alcohol Use History: Occasional Past Drug Use History: Marijuana - Past Family History Father Family Medical History: Congestive Heart Failure (CHF), COPD, Diabetes Mellitus General Exam Limitations: no limitations General appearance: alert, in no apparent distress Respiratory exam: Present: normal lung sounds bilaterally. Absent: respiratory distress, wheezes, rales, rhonchi, stridor Cardiovascular Exam: Present: regular rate, normal rhythm, normal heart sounds. Absent: systolic murmur, diastolic murmur, rubs, gallop, clicks GI/Abdominal exam: Present: soft, tenderness (Suprapubic), normal bowel sounds. Absent: distended, guarding, rebound, rigid Neurological exam: Present: alert, oriented X3, CN II-XII intact Psychiatric exam: Present: normal affect, normal mood Skin exam: Present: warm, dry, intact, normal color. Absent: rash Course Vital Signs 02/09/23 12:06 Temperature 98.2 F Pulse Rate 91 Respiratory 20 Rate Blood Pressure 122/86 O2 Sat by Pulse 99 Oximetry Medical Decision Making - Medical Decision Making Was pt. sent in by a medical professional or institution (, PA, MARKETING DATABASE ANALYST, urgent care, hospital, or fci...) When possible be specific @ -No Did you speak to anyone other than the patient for history (EMS, parent, family, police, friend...)? What history was obtained from this source @ -No Did you review nursing and triage notes (agree or disagree)? Why? @ -I reviewed and agree with nursing and triage notes Were old charts reviewed (outside hosp., previous admission, EMS record, old EKG, old radiological studies, urgent care reports/EKG's, fci records)? Report findings @ -No old charts were reviewed Differential Diagnosis (chest pain, altered mental status, abdominal pain women, abdominal pain men, vaginal bleeding, weakness, fever, dyspnea, syncope, headache, dizziness, GI bleed, back pain, seizure, CVA, palpatations, mental health, musculoskeletal)? @ -Differential Abdominal Pain Women: Appendicitis, Cholecystitis, diverticulosis, ischemic bowel, pancreatitis, hepatitis, UTI, gastroenteritis, AAA, incarcerated hernia, bowel obstruction, constipation, inflammatory bowel, hepatitis, peptic ulcer disease, splenic infarction, perforated viscus, vulvitis, ovarian torsion, PID, kidney stone, placenta abruption, this is not meant to be an all-inclusive list EKG interpreted by me (3pts min.). @ -None X-rays interpreted by me (1pt min.). @ -None done CT interpreted by me (1pt min.). @ -None done U/S interpreted by me (1pt. min.). @ -None done What testing was considered but not performed or refused? (CT, X-rays, U/S, labs)? Why? @ -None What meds were considered but not given or refused? Why? @ -None Did you discuss the management of the patient with other professionals (professionals i.e. , PA, MARKETING DATABASE ANALYST, lab, RT, psych nurse, social work specialist, tax processor, teacher, correction officer, nurse case manager)? Give summary @ -No Was smoking cessation discussed for >3mins.? @ -No Was critical care preformed (if so, how long)? @ -No Were there social determinants of health that impacted care today? How? (Homelessness, low income, unemployed, alcoholism, drug addiction, transportation, low edu. Level, literacy, decrease access to med. care, custodial, rehab)? @ -No Was there de-escalation of care discussed even if they declined (Discuss DNR or withdrawal of care, Hospice)? DNR status @ -No What co-morbidities impacted this encounter? (DM, HTN, Smoking, COPD, CAD, Cancer, CVA, ARF, Chemo, Hep., AIDS, mental health diagnosis, sleep apnea, morbid obesity)? @ -None Was patient admitted / discharged? Hospital course, mention meds given and route, prescriptions, significant lab abnormalities, going to OR and other pertinent info. @ -Discharge. Upon examination vital signs were stable. Patient was unable to sit in a chair due to discomfort. Urinalysis in the ER showed large leukocyte esterases with occasional bacteria. Patient will be given by mouth Pyridium for symptom control in the ER. Patient will also receive a starter pack for Keflex due to the holiday and pharmacy hours may be closed. Patient will be prescribed Pyridium and Keflex for urinary tract infection. Patient will be discharged in stable condition with follow-up to PCP. Patient's expressed understanding and agreement with care plan. Undiagnosed new problem with uncertain prognosis? @ -No Drug Therapy requiring intensive monitoring for toxicity (Heparin, Nitro, Insulin, Cardizem)? @ -No Were any procedures done? @ -No Diagnosis/symptom? @ -Urinary tract infection Acute, or Chronic, or Acute on Chronic? @ -Acute on chronic Uncomplicated (without systemic symptoms) or Complicated (systemic symptoms)? @ -Uncomplicated Side effects of treatment? @ -No Exacerbation, Progression, or Severe Exacerbation? @ -No Poses a threat to life or bodily function? How? (Chest pain, [place], [place], pneumonia, PE, COPD, DKA, ARF, appy, cholecystitis, CVA, Diverticulitis, Homicidal, Suicidal, threat to staff... and all critical care pts) @ -No - Lab Data Lab Results 02/09/23 Range/Units 12:10 Urine Color Yellow Urine Appearance Turbid H (Clear) Urine pH 5.5 (5.0-8.0) Ur Specific [place] 1.022 (1.001-1.035) Urine Protein 1+ H (Negative) Urine Glucose (UA) Negative (Negative) Urine Ketones Negative (Negative) Urine Blood Moderate H (Negative) Urine Nitrite Negative (Negative) Urine Bilirubin Negative (Negative) Urine Urobilinogen <2.0 (<2.0) mg/dL Ur Leukocyte Esterase Large H (Negative) Urine RBC 35 H (0-5) /hpf Urine WBC >182 H (0-5) /hpf Urine WBC Clumps Few H (None) /hpf Ur Squamous Epith Cells 26 H (0-4) /hpf Urine Bacteria Occasional H (None) /hpf Urine Mucus Occasional H (None) /hpf Disposition Clinical Impression: Urinary tract infection Disposition: HOME SELF-CARE Condition: Stable Instructions (If sedation given, give patient instructions): Urinary Tract Infection in Women (ED) Additional Instructions: Please return to the Emergency Department if symptoms worsen or any other concerns. Prescriptions: Cephalexin [Keflex] 500 mg PO Q6HR #40 cap Phenazopyridine [Pyridium] 200 mg PO TID #6 tablet Is patient prescribed a controlled substance at d/c from ED?: No Referrals: Blake Quiroga MD [Primary Care Provider] - 1-2 days Time of Disposition: 13:01
[2023-02-09 13:32] VITALS: BP 122/74; PULSE 74; RESP 18
== END 2023-02-09 13:20 | disposition home or self-care (01) ==
LOC: EC 12:04
DX: N39.0 Urinary tract infection, site not specified (principal); J45.909 Unspecified asthma, uncomplicated; F12.90 Cannabis use, unspecified, uncomplicated; Z91.030 Bee allergy status
CPT/HCPCS: 81001; 87086; 99283

== ENCOUNTER 2023-09-16 14:30 | Emergency (ER) | payer OTHER ==
[2023-09-16 14:34] VITALS: BP 135/90; PULSE 79; RESP 16; TEMP 98
--- NOTE | 2023-09-16 14:42 | ED ---
General Adult HPI - General Chief complaint: Recheck/Abnormal Lab/Rx Stated complaint: ETOH Time Seen by Provider: 09/16/23 14:40 Source: patient, RN notes reviewed Mode of arrival: ambulatory Limitations: no limitations - History of Present Illness Initial comments: This is a 28-year-old female with no significant past medical history presents the emergency department chief complaint of overall not feeling well, nausea and vomiting. Patient states that she had a lot of alcohol to drink yesterday evening and states that this morning she has had multiple episodes of emesis in addition to overall feeling of unwell and diffuse abdominal pain with nausea. States her last drink was at approximately 1200pm. She denies history of alcohol withdrawl. Patient denies other illicit drug use. Endorses chills, no reported fevers. Denies dysuria, hematuria, hematemesis, dyspnea. - Related Data Previous Rx's Medication Instructions Recorded Ondansetron Odt [Zofran Odt] 4 mg PO Q8HR PRN #10 tab 09/16/23 Allergies Allergy/AdvReac Type Severity Reaction Status Date / Time bee venom protein (honey bee) Allergy Rash/Hives Verified 09/16/23 15:12 Review of Systems ROS Statement: Those systems with pertinent positive or pertinent negative responses have been documented in the HPI. ROS Other: All systems not noted in ROS Statement are negative. Past Medical History Past Medical History: Asthma Additional Past Medical History / Comment(s): scoliosis History of Any Multi-Drug Resistant Organisms: None Reported Past Surgical History: No Surgical Hx Reported Past Anesthesia/Blood Transfusion Reactions: No Reported Reaction Past Psychological History: Anxiety Smoking Status: Never smoker Past Alcohol Use History: Occasional Past Drug Use History: Marijuana - Past Family History Father Family Medical History: Congestive Heart Failure (CHF), COPD, Diabetes Mellitus General Exam Limitations: no limitations General appearance: alert, in no apparent distress Head exam: Present: atraumatic, normocephalic, normal inspection Eye exam: Present: normal appearance, PERRL, EOMI. Absent: scleral icterus, conjunctival injection, periorbital swelling ENT exam: Present: normal exam, mucous membranes moist Neck exam: Present: normal inspection. Absent: tenderness, meningismus, lymphadenopathy Respiratory exam: Present: normal lung sounds bilaterally. Absent: respiratory distress, wheezes, rales, rhonchi, stridor Cardiovascular Exam: Present: regular rate, normal rhythm, normal heart sounds. Absent: systolic murmur, diastolic murmur, rubs, gallop, clicks GI/Abdominal exam: Present: soft, tenderness (diffuse), normal bowel sounds. Absent: guarding, rebound, rigid Extremities exam: Present: normal inspection, full ROM, normal capillary refill. Absent: tenderness, pedal edema, joint swelling, calf tenderness Back exam: Present: normal inspection Neurological exam: Present: alert, oriented X3, CN II-XII intact Course Vital Signs 09/16/23 14:31 Temperature 98.0 F Pulse Rate 79 Respiratory 16 Rate Blood Pressure 135/90 O2 Sat by Pulse 99 Oximetry Medical Decision Making - Medical Decision Making Was pt. sent in by a medical professional or institution (, ADAIR, NEONATAL SPECIALIST, urgent care, hospital, or prison...) When possible be specific @ -No Did you speak to anyone other than the patient for history (EMS, parent, family, police, friend...)? What history was obtained from this source @ -No Did you review nursing and triage notes (agree or disagree)? Why? @ -I reviewed and agree with nursing and triage notes Were old charts reviewed (outside hosp., previous admission, EMS record, old EKG, old radiological studies, urgent care reports/EKG's, prison records)? Report findings @ -No old charts were reviewed Differential Diagnosis (chest pain, altered mental status, abdominal pain women, abdominal pain men, vaginal bleeding, weakness, fever, dyspnea, syncope, headache, dizziness, GI bleed, back pain, seizure, CVA, palpatations, mental health, musculoskeletal)? @ -Marcelino abuse, alcohol intoxication, acute nausea and vomiting, gastroenteritis, this list is not all inclusive. EKG interpreted by me (3pts min.). @ -none X-rays interpreted by me (1pt min.). @ -None done CT interpreted by me (1pt min.). @ -None done U/S interpreted by me (1pt. min.). @ -None done What testing was considered but not performed or refused? (CT, X-rays, U/S, lab s)? Why? @ -None What meds were considered but not given or refused? Why? @ -None Did you discuss the management of the patient with other professionals (professionals i.e. , PA, NEONATAL SPECIALIST, lab, RT, psych nurse, manager social work, manager summer, teacher, dental officer, manager of case)? Give summary @ -No Was smoking cessation discussed for >3mins.? @ -No Was critical care preformed (if so, how long)? @ -No Were there social determinants of health that impacted care today? How? (Homelessness, low income, unemployed, alcoholism, drug addiction, transportation, low edu. Level, literacy, decrease access to med. care, retirement, rehab)? @ -No Was there de-escalation of care discussed even if they declined (Discuss DNR or withdrawal of care, Hospice)? DNR status @ -No What co-morbidities impacted this encounter? (DM, HTN, Smoking, COPD, CAD, Cancer, CVA, ARF, Chemo, Hep., AIDS, mental health diagnosis, sleep apnea, morbid obesity)? @ -None Was patient admitted / discharged? Hospital course, mention meds given and route, prescriptions, significant lab abnormalities, going to OR and other pertinent info. @ -Discharged. 28-year-old female with generalized abdominal pain, nausea and vomiting. On examination patient's abdomen is soft, diffuse tenderness with no rebound tenderness or rigidity. Patient will be symptomatically treated with IV fluids and Zofran pending laboratory results. Patient treated with this plan. On reevaluation patient states that her symptoms of nausea have markedly improved. Labs including CBC, CMP, amylase and lipase all within normal limits. Patient is stable for discharge. She was provided with a prescription for Zofran outpatient as needed. Recommend the patient follows up with her primary care provider next week for further evaluation. All questions answered at be dside and strict return parameters discussed with the patient's usual verbalized understanding. Case discussed with Dr. Gramajo. Undiagnosed new problem with uncertain prognosis? @ -No Drug Therapy requiring intensive monitoring for toxicity (Heparin, Nitro, Insulin, Cardizem)? @ -No Were any procedures done? @ -No Diagnosis/symptom? @ -alcohol abuse, nausea and vomiting Acute, or Chronic, or Acute on Chronic? @ -acute Uncomplicated (without systemic symptoms) or Complicated (systemic symptoms)? @ -uncomplicated Side effects of treatment? @ -No Exacerbation, Progression, or Severe Exacerbation? @ -No Poses a threat to life or bodily function? How? (Chest pain, [place], [place], pneumonia, PE, COPD, DKA, ARF, appy, cholecystitis, CVA, Diverticulitis, Homicidal, Suicidal, threat to staff... and all critical care pts) @ -No - Lab Data Result diagrams: 09/16/23 15:20 09/16/23 15:20 Lab Results 09/16/23 09/16/23 09/16/23 Range/Units 15:20 15:20 15:20 WBC 12.0 H (3.8-10.6) k/uL RBC 4.80 (3.80-5.40) m/uL Hgb 14.8 (11.4-16.0) gm/dL Hct 44.7 (34.0-46.0) % MCV 93.1 (80.0-100.0) fL MCH 30.9 (25.0-35.0) pg MCHC 33.2 (31.0-37.0) g/dL RDW 12.2 (11.5-15.5) % Plt Count 289 (150-450) k/uL MPV 8.3 Neutrophils % 88 % Lymphocytes % 8 % Monocytes % 3 % Eosinophils % 0 % Basophils % 0 % Neutrophils # 10.5 H (1.3-7.7) k/uL Lymphocytes # 1.0 (1.0-4.8) k/uL Monocytes # 0.4 (0-1.0) k/uL Eosinophils # 0.0 (0-0.7) k/uL Basophils # 0.1 (0-0.2) k/uL PT 11.3 (10.0-12.5) sec INR 1.0 (<1.2) APTT 27.6 (22.0-30.0) sec Sodium 142 (137-145) mmol/L Potassium 3.7 (3.5-5.1) mmol/L Chloride 110 H (98-107) mmol/L Carbon Dioxide 21 L (22-30) mmol/L Anion Gap 11 mmol/L BUN 10 (7-17) mg/dL Creatinine 0.65 (0.52-1.04) mg/dL Est GFR (CKD-EPI)AfAm >90 (>60 ml/min/1.73 sqM) Est GFR (CKD-EPI)NonAf >90 (>60 ml/min/1.73 sqM) Glucose 101 H (74-99) mg/dL Calcium 9.8 (8.4-10.2) mg/dL Magnesium 1.8 (1.6-2.3) mg/dL Total Bilirubin 0.7 (0.2-1.3) mg/dL AST 28 (14-36) U/L ALT 28 (4-34) U/L Alkaline Phosphatase 105 (38-126) U/L Total Protein 7.6 (6.3-8.2) g/dL Albumin 4.9 (3.5-5.0) g/dL Amylase 51 (30-110) U/L Lipase 32 (23-300) U/L Serum Alcohol <10 mg/dL Disposition Clinical Impression: Alcohol abuse, Nausea and vomiting Disposition: HOME SELF-CARE Condition: Good Instructions (If sedation given, give patient instructions): Acute Nausea and Vomiting (ED) Prescriptions: Ondansetron Odt [Zofran Odt] 4 mg PO Q8HR PRN #10 tab PRN Reason: Nausea Is patient prescribed a controlled substance at d/c from ED?: No Referrals: Blake Quiroga MD [Primary Care Provider] - 1-2 days Time of Disposition: 16:29
[2023-09-16] MEDS: ONDANSETRON 4 MG/2 ML VIAL IVP STA (14:57)
[2023-09-16] MEDS: SODIUM CHLORIDE 0.9% 1,000 ML IV STA (15:02)
[2023-09-16 15:30] LABS: Basophils % (A) 0 %; Eosinophils % (A) 0 %; HCT 44.7 % (34.0-46.0); HGB 14.8 gm/dL (11.4-16.0); Lymphocytes % (A) 8 %; MCH 30.9 pg (25.0-35.0); MCHC 33.2 g/dL (31.0-37.0); MCV 93.1 fL (80.0-100.0); Mean Platelet Volume 8.3; Monocytes % (A) 3 %; Neutrophils % (A) 88 %; Platelet Count 289 k/uL (150-450); RDW 12.2 % (11.5-15.5)
[2023-09-16 15:31] LABS: Basophils # (A) 0.1 k/uL (0-0.2); Monocytes # (A) 0.4 k/uL (0-1.0); Neutrophils # (A) 10.5 k/uL (1.3-7.7)
[2023-09-16 15:41] LABS: ALT 28 U/L (4-34); AST 28 U/L (14-36); African American GFR (CKD) >90 (>60 ml/min/1.73 sqM); Albumin 4.9 g/dL (3.5-5.0); Alcohol <10 mg/dL; Alkaline Phosphatase 105 U/L (38-126); Amylase 51 U/L (30-110); Anion Gap 11 mmol/L; Blood Urea Nitrogen 10 mg/dL (7-17); Calcium 9.8 mg/dL (8.4-10.2); Carbon Dioxide 21 mmol/L (22-30); Chloride 110 mmol/L (98-107); Glucose 101 mg/dL (74-99); Lipase 32 U/L (23-300); Magnesium 1.8 mg/dL (1.6-2.3); Non-African American GFR(CKD) >90 (>60 ml/min/1.73 sqM); Potassium 3.7 mmol/L (3.5-5.1); Sodium 142 mmol/L (137-145); Total Bilirubin 0.7 mg/dL (0.2-1.3); Total Protein 7.6 g/dL (6.3-8.2)
[2023-09-16 15:56] LABS: Partial Thromboplastin Time 27.6 sec (22.0-30.0); Prothrombin Time 11.3 sec (10.0-12.5)
== END 2023-09-16 16:50 | disposition home or self-care (01) ==
LOC: EC 14:30
DX: F10.10 Alcohol abuse, uncomplicated (principal); Z91.030 Bee allergy status; Y90.0 Blood alcohol level of less than 20 mg/100 ml
CPT/HCPCS: 36415; 80053; 82150; 83690; 83735; 85025; 85610; 85730; 99283; 96374; 96361; G0480; J2405; 80320

== ENCOUNTER 2023-11-06 15:12 | Emergency (ER) | payer OTHER | END 2023-11-06 19:42 | disposition home or self-care (01) | LOC: EC 15:12 | DX: N39.0 Urinary tract infection, site not specified (principal) ==

== ENCOUNTER 2024-01-09 19:04 | Emergency (ER) | payer OTHER ==
--- NOTE | 2024-01-09 19:58 | ED ---
Upper Extremity HPI - General Chief Complaint: Extremity Injury, Upper Stated Complaint: Fall, left arm injury Time Seen by Provider: 01/09/24 19:20 Source: patient, RN notes reviewed Mode of arrival: ambulatory Limitations: no limitations - History of Present Illness Initial Comments: 28-year-old female presents emergency department with chief complaint of fall, left arm injury. She states she was standing on a chair putting some stars in the ceiling when she fell off. She fell onto her left side. She complains of left elbow pain along with some lacerations caused by a picture frame. She states she is unsure when her last tetanus was. Patient states she cannot fully move her left elbow denies any shoulder pain no significant headache, head injury or loss conscious. - Related Data Previous Rx's Medication Instructions Recorded Ondansetron Odt [Zofran Odt] 4 mg PO Q8HR PRN #10 tab 09/16/23 Allergies Allergy/AdvReac Type Severity Reaction Status Date / Time bee venom protein (honey bee) Allergy Rash/Hives Verified 01/09/24 19:17 Review of Systems ROS Statement: Those systems with pertinent positive or pertinent negative responses have been documented in the HPI. ROS Other: All systems not noted in ROS Statement are negative. Past Medical History Past Medical History: Asthma Additional Past Medical History / Comment(s): scoliosis History of Any Multi-Drug Resistant Organisms: None Reported Past Surgical History: No Surgical Hx Reported Past Anesthesia/Blood Transfusion Reactions: No Reported Reaction Past Psychological History: Anxiety Smoking Status: Never smoker Past Alcohol Use History: Occasional Past Drug Use History: Marijuana - Past Family History Father Family Medical History: Congestive Heart Failure (CHF), COPD, Diabetes Mellitus General Exam Limitations: no limitations General appearance: alert, in no apparent distress Head exam: Present: atraumatic, normocephalic, normal inspection Eye exam: Present: normal appearance, PERRL, EOMI. Absent: scleral icterus, conjunctival injection, periorbital swelling ENT exam: Present: normal exam, mucous membranes moist Neck exam: Present: normal inspection, full ROM. Absent: tenderness, meningismus, lymphadenopathy Respiratory exam: Present: normal lung sounds bilaterally. Absent: respiratory distress, wheezes, rales, rhonchi, stridor Cardiovascular Exam: Present: regular rate, normal rhythm, normal heart sounds. Absent: systolic murmur, diastolic murmur, rubs, gallop, clicks Extremities exam: Present: other (Elbow tenderness with palpation, limited range of motion neurovascular intact no tenderness above or below left elbow, multiple lacerations) Course Vital Signs 01/09/24 19:14 Temperature 98.2 F Pulse Rate 98 Respiratory 20 Rate Blood Pressure 128/90 O2 Sat by Pulse 100 Oximetry Procedures - Orthopedic Splinting/Casting Injury #1 Side: left Upper Extremity Injury Location: long arm, elbow Upper Extremity Immobilizer: sling/shoulder immobilizer, posterior splint, synthetic pre-padded splint Medical Decision Making - Medical Decision Making Was pt. sent in by a medical professional or institution (ADAIR Saeed, BOTTOM PRESSER, urgent care, hospital, or [facility]...) When possible be specific @ -No Did you speak to anyone other than the patient for history (EMS, parent, family, police, friend...)? What history was obtained from this source @ -No Did you review nursing and triage notes (agree or disagree)? Why? @ -I reviewed and agree with nursing and triage notes Were old charts reviewed (outside hosp., previous admission, EMS record, old EKG, old radiological studies, urgent care reports/EKG's, [facility] records)? Report findings @ -No old charts were reviewed Differential Diagnosis (chest pain, altered mental status, abdominal pain women, abdominal pain men, vaginal bleeding, weakness, fever, dyspnea, syncope, headache, dizziness, GI bleed, back pain, seizure, CVA, palpatations, mental health, musculoskeletal)? @ -arm Fracture, arm sprain EKG interpreted by me (3pts min.). @ -None X-rays interpreted by me (1pt min.). @ -X-ray of the left elbow showing an displaced radial head fracture CT interpreted by me (1pt min.). @ -None done U/S interpreted by me (1pt. min.). @ -None done What testing was considered but not performed or refused? (CT, X-rays, U/S, labs)? Why? @ -None What meds were considered but not given or refused? Why? @ -None Did you discuss the management of the patient with other professionals (professionals i.e. ADAIR Saeed, BOTTOM PRESSER, lab, RT, psych nurse, criminal justice social worker, treating and pumping supervisor, teacher, parking enforcement officer, telephonic case manager)? Give summary @ -No Was smoking cessation discussed for >3mins.? @ -No Was critical care preformed (if so, how long)? @ -No Were there social determinants of health that impacted care today? How? (Homelessness, low income, unemployed, alcoholism, drug addiction, transportation, low edu. Level, literacy, decrease access to med. care, [facility], rehab)? @ -No Was there de-escalation of care discussed even if they declined (Discuss DNR or withdrawal of care, Hospice)? DNR status @ -No What co-morbidities impacted this encounter? (DM, HTN, Smoking, COPD, CAD, Cancer, CVA, ARF, Chemo, Hep., AIDS, mental health diagnosis, sleep apnea, morbid obesity)? @ -None Was patient admitted / discharged? Hospital course, mention meds given and route, prescriptions, significant lab abnormalities, going to OR and other pertinent info. @ -Discharge patient has radial head fracture she is placed in a long-arm splint, sling and will follow-up with orthopedics. Undiagnosed new problem with uncertain prognosis? @ -No Drug Therapy requiring intensive monitoring for toxicity (Heparin, Nitro, Insulin, Cardizem)? @ -No Were any procedures done? @ -[Splinting Diagnosis/symptom? @ -Left radial head fracture Acute, or Chronic, or Acute on Chronic? @ -Acute Uncomplicated (without systemic symptoms) or Complicated (systemic symptoms)? @ -Uncomplicated Side effects of treatment? @ -No Exacerbation, Progression, or Severe Exacerbation? @ -No Poses a threat to life or bodily function? How? (Chest pain, [place], [place], pneumonia, PE, COPD, DKA, ARF, appy, cholecystitis, CVA, Diverticulitis, Homicidal, Suicidal, threat to staff... and all critical care pts) @ -No Disposition Clinical Impression: Minor head trauma, Left radial head fracture Disposition: HOME SELF-CARE Condition: Stable Instructions (If sedation given, give patient instructions): Arm Fracture in Adults (ED) Additional Instructions: Please return to the Emergency Department if symptoms worsen or any other concerns. Is patient prescribed a controlled substance at d/c from ED?: No Referrals: Blake Quiroga MD [Primary Care Provider] - 1-2 days Gallito Pinzon MD [STAFF PHYSICIAN] - 1-2 days Time of Disposition: 20:24
--- NOTE | 2024-01-09 20:12 | XR ---
EXAMINATION TYPE: XR elbow complete LT DATE OF EXAM: 01/09/2024 7:38 PM CLINICAL INDICATION: Female, 28 years old with history of pain; [facility] COMPARISON: None TECHNIQUE: XR elbow complete LT; elbow was examined in AP, lateral, and oblique projections. FINDINGS/IMPRESSION: Intra-articular left radial head fracture of the radial head with associated joint effusion. [facility], , 01/09/2024 8:09 PM
[2024-01-09] MEDS: DIPH,PERTUS(ACELL)TETVAC-LF 0.5 ML VIAL IM ONE (20:14)
[2024-01-09] MEDS: BACITRACIN OINT 1 EACH PACKET TOPICAL ONE (20:14)
[2024-01-09] MEDS: ACET/COD 300 MG/30 MG STARTER PACK 6 TAB BTL PO STA (20:37)
[2024-01-09 20:43] VITALS: BP 123/81; PULSE 79; RESP 18; TEMP 98
== END 2024-01-09 20:43 | disposition home or self-care (01) ==
LOC: EC 19:04
CPT/HCPCS: 29105; 90471; 90715; 99284

== ENCOUNTER 2024-02-16 10:48 | Emergency (ER) | payer OTHER ==
[2024-02-16 11:01] VITALS: RESP 20
--- NOTE | 2024-02-16 11:09 | ED ---
Wound/Laceration HPI - General Chief Complaint: Wound/Laceration Stated Complaint: R Wrist Injury Time Seen by Provider: 02/16/24 11:03 Source: patient, RN notes reviewed Mode of arrival: ambulatory Limitations: no limitations - History of Present Illness Initial Comments: This is a 28-year-old female who presents to the emergency department for a laceration to the right wrist. States that she got angry and punched a window this morning, causing the injury. Pain is controlled. Tetanus vaccine is up-to-date. States that she has some pain going up into the forearm as well. - Related Data Previous Rx's Medication Instructions Recorded Ondansetron Odt [Zofran Odt] 4 mg PO Q8HR PRN #10 tab 09/16/23 Allergies Allergy/AdvReac Type Severity Reaction Status Date / Time bee venom protein (honey bee) Allergy Rash/Hives Verified 02/16/24 10:59 Review of Systems ROS Statement: Those systems with pertinent positive or pertinent negative responses have been documented in the HPI. ROS Other: All systems not noted in ROS Statement are negative. Past Medical History Past Medical History: Asthma Additional Past Medical History / Comment(s): scoliosis History of Any Multi-Drug Resistant Organisms: None Reported Past Surgical History: No Surgical Hx Reported Past Anesthesia/Blood Transfusion Reactions: No Reported Reaction Past Psychological History: Anxiety Smoking Status: Never smoker Past Alcohol Use History: Heavy Past Drug Use History: Marijuana - Past Family History Father Family Medical History: Congestive Heart Failure (CHF), COPD, Diabetes Mellitus General Exam Limitations: no limitations General appearance: alert, in no apparent distress Head exam: Present: atraumatic, normocephalic, normal inspection Respiratory exam: Present: normal lung sounds bilaterally. Absent: respiratory distress, wheezes, rales, rhonchi, stridor Cardiovascular Exam: Present: regular rate, normal rhythm, normal heart sounds. Absent: systolic murmur, diastolic murmur, rubs, gallop, clicks Extremities exam: Present: other (4-5 cm laceration to the volar aspect of the right wrist with visible subcutaneous tissue and active bleeding) Neurological exam: Present: alert, oriented X3, CN II-XII intact Psychiatric exam: Present: normal affect, normal mood Course Vital Signs 02/16/24 02/16/24 10:59 13:04 Temperature 98.7 F 98.3 F Pulse Rate 106 H 91 Respiratory 20 20 Rate Blood Pressure 115/70 117/72 O2 Sat by Pulse 99 98 Oximetry Procedures - Laceration Laceration #1 Consent Obtained: verbal consent Indication: laceration Site: upper extremity Size (cm): 5 Description: linear Depth: simple, single layer Anesthetic Used: lidocaine 1% Anesthesia Technique: local infiltration Amount (mls): 5 Pre-repair: wound explored, irrigated extensively Type of Sutures: nylon Size of Sutures: 4-0 Number of Sutures: 7 Technique: simple, interrupted Medical Decision Making - Medical Decision Making This is a 28-year-old female who presents to the emergency department for a laceration. Was pt. sent in by a medical professional or institution? @ -No Did you speak to anyone other than the patient for history? @ -No Did you review nursing and triage notes? @ -Yes, and I agree, it is accurate with regards to the patient's symptoms. Were old charts reviewed? @ -No Differential Diagnosis? @ -Laceration, abrasion, burn, cellulitis, this is not meant to be an all- inclusive list. EKG interpreted by me (3pts min.)? @ -Not obtained X-rays interpreted by me (1pt min.)? @ -X-ray of the right forearm obtained. My interpretation identifies no acute fractures. CT interpreted by me (1pt min.)? @ -Not obtained U/S interpreted by me (1pt. min.)? @ -Not obtained What testing was considered but not performed? (CT, X-rays, U/S, labs)? Why? @ -None What meds were considered but not given? Why? @ -None Did you discuss the management of the patient with other professionals? @ -No Did you reconcile home meds? @ -No Was smoking cessation discussed for >3mins.? @ -No Was critical care preformed (if so, how long)? @ -No Were there social determinants of health that impacted care today? How? (Homelessness, low income, unemployed, alcoholism, drug addiction, corral sportation, low edu. Level, literacy, decrease access to med. care, correction, rehab)? @ -No Was there de-escalation of care discussed even if they declined? (Discuss DNR or withdrawal of care, Hospice)? @ -No What co-morbidities impacted this encounter? (DM, HTN, Smoking, COPD, CAD, Cancer, CVA, Hep., AIDS, mental health diagnosis, sleep apnea, morbid obesity)? @ -None Was patient admitted / discharged? @ -Discharged. X-ray of the right forearm obtained revealing no acute process. The wound was cleansed and repaired with sutures. Tetanus vaccine is up to date. Ibuprofen administered for discomfort. Advised returning in 7 to 10 days for suture removal and continuing with ibuprofen and Tylenol as needed for pain relief. Patient discharged home in stable condition. Case discussed with ED attending Dr. Hopkins. Return precautions reviewed in depth, the patient is instructed to return to the emergency department with any new, worsening, or concerning symptoms. Patient verbalized understanding. Undiagnosed new problem with uncertain prognosis? @ -None Drug Therapy requiring intensive monitoring for toxicity (Heparin, Nitro, Insulin, Cardizem)? @ -None Were any procedures done? @ -Laceration repair with sutures Diagnosis/symptom? @ -Laceration Acute, or Chronic, or Acute on Chronic? @ -Acute Uncomplicated (without systemic symptoms) or Complicated (systemic symptoms)? @ -Uncomplicated Side effects of treatment? @ -None Exacerbation, Progression, or Severe Exacerbation] @ -Not applicable Poses a threat to life or bodily function? @ -No - Radiology Data Radiology results: report reviewed, image reviewed Disposition Clinical Impression: Laceration Disposition: HOME SELF-CARE Instructions (If sedation given, give patient instructions): Care For Your Stitches (ED) Additional Instructions: Return to the emergency department with any new, worsening, or concerning symptoms and in 7-10 days to have the stitches removed. Alternate with ibuprofen and Tylenol as needed for pain relief. Is patient prescribed a controlled substance at d/c from ED?: No Referrals: Blake Quiroga MD [Primary Care Provider] - 1-2 days Time of Disposition: 12:07
[2024-02-16] MEDS: LIDOCAINE 1% INJ 10MG/ML (20 ML MDV) SQ ONE (11:14)
[2024-02-16] MEDS: ONDANSETRON ODT 4 MG TAB PO STA (11:15)
--- NOTE | 2024-02-16 12:04 | XR ---
EXAMINATION TYPE: XR forearm RT DATE OF EXAM: 02/16/2024 COMPARISON: NONE CLINICAL INDICATION: Female, 28 years old with history of Injury; Two views of the forearm demonstrate that the osseous structures appear to be intact and the joint sp aces appear to be preserved. There is no acute fracture or dislocation. IMPRESSION: 1. No acute fracture or dislocation [facility], , 02/16/2024 12:02 PM
[2024-02-16] MEDS: IBUPROFEN 800 MG TAB PO STA (12:45)
[2024-02-16 13:06] VITALS: BP 117/72; PULSE 91; TEMP 98.3
== END 2024-02-16 13:06 | disposition home or self-care (01) ==
LOC: EC 10:48
DX: S61.511A Laceration without foreign body of right wrist, initial encounter (principal); Z91.030 Bee allergy status; W22.09XA Striking against other stationary object, initial encounter
CPT/HCPCS: 73090; 99283; 12002; J2003